=== PATIENT | male | born 1960 | race Caucasian/White ===

== ENCOUNTER 2017-01-19 18:52 | Emergency (ER) | payer OTHER ==
[~2017-01-19] VITALS: Ht 190.5 cm; Wt 82.0 kg
[~2017-01-19 18:52] MED LIST: ASPI325T PO; ATOR20TA42 PO; FOLI1 PO; MVI PO
[2017-01-19 19:05] VITALS: BP 135/82; PULSE 103; RESP 20; TEMP 99; O2SAT 100
[2017-01-19] MEDS ORDERED: SODIUM CHLORIDE 0.9% FLUSH 10 ML FLUSH IV FLUSH PRN (19:45)
--- NOTE | 2017-01-19 19:50 | PD ---
HPI Chief Complaint: Altered Mental Status Time Seen by Provider: 19:38 Travel History International Travel<30 days: No Contact w/Intl Traveler<30days: No Traveled to known affect area: No History of Present Illness HPI 56-year-old male presents to the emergency department by EMS transport from home for evaluation of altered mentation. According the patient he is not sure why he is here. Patient states she was talking to his stepfather on the phone and then she'll thereafter EMS arrived stating that he needed be transported to the hospital. Family arrived there as well and stepfather was presents stating that he needed to go to the hospital. Patient denies any recent injury or fall fever congestion confusion headache speech disturbance chest pain palpitations sweats shortness of breath nausea vomiting new upper or lower extremity numbness tingling or weakness fever or chills diarrhea urinary symptoms or injury. Patient states that he does have residual lower extremity weakness from a stroke he suffered in September. Patient admits to drinking alcohol today but states he drinks alcohol every day. Patient denies seizure disorder. Patient states she's felt well the past several days felt well day was eating dinner had had several drinks and then the paramedics arrived. Patient denies being depressed and wanting to harm himself or others. Patient states she lives in [place] and is visiting here to help out his stepfather. Patient is unsure why the paramedics were called patient reports that he is upset because he doesn't have any financial resources to afford being evaluated in the emergency department. Patient repeatedly tells me that he doesn't know why he is here and that he has had several drinks today. Patient does report that he thinks it is January 2006 is the next holiday and he thinks Derrek Salazar is the president and then repeats that he's had several drinks today and he is not sure why he is here. [facility] Past Medical History Narrative Medical Humza CVA eighth 2015 sepsis alcoholism transaminitis kidney injury metabolic encephalopathy right hip surgery tobacco use: Nursing notes reviewed Cancer: No Cardiovascular Problems: No Cerebrovascular Accident: Yes (SEP 2016 ) Endocrine: No Genitourinary: No Immune Disorder: Yes Medical other: Yes (ALCOHOLISM) Musculoskeletal: No Neurologic: No Psychiatric: No Reproductive: No Respiratory: No Migraines: No Seizures: No Influenza Vaccination: No Past Surgical History Abdominal Surgery: No AICD: No Arteriovenous Shunt: No Cardiac Surgery: No Ear Surgery: No Endocrine Surgery: No Eye Surgery: No Genitourinary Surgery: No Gynecologic Surgery: No Insulin Pump: No Joint Replacement: Yes (RIGHT Hip replacement (stainless steel in 1984)) Oral Surgery: No Pacemaker: No Thoracic Surgery: No Other Surgery: Yes (Hip replacement ) Social History Alcohol Use: Yes (LIQUOR DAILY) Tobacco Use: Yes Substance Use: Yes (MARIJUANA OCCASIONALLY) Allergies-Medications (Allergen,Severity, Reaction): Coded Allergies: No Known Allergies (Verified Adverse Reaction, Unknown, 01/19/17) Reported Meds & Prescriptions Reported Meds & Active Scripts Active No Active Prescriptions or Reported Medications Narrative Medication denies Review of Systems Except as stated in HPI: all other systems reviewed are Neg Physical Exam Narrative GENERAL: Well-developed well-nourished male in no acute distress no respiratory distress GCS 15 except for confusion about the year is oriented to person place time and events. SKIN: Warm and dry. HEAD: Atraumatic. Normocephalic. EYES: Pupils equal and round. No scleral icterus. No injection or drainage. ENT: No nasal bleeding or discharge. Mucous membranes pink and moist. NECK: Trachea midline. No JVD. CARDIOVASCULAR: Regular rate and rhythm. RESPIRATORY: No accessory muscle use. Clear to auscultation. Breath sounds equal bilaterally. GASTROINTESTINAL: Abdomen soft, non-tender, nondistended. Hepatic and splenic margins not palpable. MUSCULOSKELETAL: Extremities without clubbing, cyanosis, or edema. No obvious deformities. NEUROLOGICAL: Awake and alert. No obvious cranial nerve deficits. Motor grossly within normal limits. Five out of 5 muscle strength in the arms and legs except right foot drop old since September 2015. No pronator drift. No limb ataxia. Normal speech. PSYCHIATRIC: Appropriate mood and affect; insight and judgment normal. Data Data Last Documented VS Vital Signs Date Time Temp Pulse Resp B/P (MAP) Pulse Ox O2 Delivery O2 Flow Rate FiO2 01/19/17 21:40 98.6 110 22 98 Room Air 01/19/17 19:05 135/82 (99) Orders Orders Electrocardiogram (01/19/17 19:38) Ammonia (01/19/17 19:38) Complete Blood Count With Diff (01/19/17 19:38) Comprehensive Metabolic Panel (01/19/17 19:38) Prothrombin Time / Inr (Pt) (01/19/17 19:38) Act Partial Throm Time (Ptt) (01/19/17 19:38) Troponin I (01/19/17 19:38) Thyroid Stimulating Hormone (01/19/17 19:38) Urinalysis - C+S If Indicated (01/19/17 19:38) Ct Brain W/O Iv Contrast(Rout) (01/19/17 19:38) Blood Glucose (01/19/17 19:38) Ecg Monitoring (01/19/17 19:38) Iv Access Insert/Monitor (01/19/17 19:38) Oximetry (01/19/17 19:38) Sodium Chloride 0.9% Flush (Ns Flush) (01/19/17 19:45) Drug Screen, Random Urine (01/19/17 19:38) Alcohol (Ethanol) (01/19/17 19:38) Magnesium (Mg) (01/19/17 19:38) Chest, Single Ap (01/19/17 21:26) Sodium Chlor 0.9% 1000 Ml Inj (Ns 1000 M (01/19/17 21:45) Ed Discharge Order (01/19/17 22:47) Labs Laboratory Tests Test 01/19/17 20:18 White Blood Count 7.6 TH/MM3 Red Blood Count 3.19 MIL/MM3 Hemoglobin 12.8 GM/DL Hematocrit 36.9 % Mean Corpuscular Volume 115.7 FL Mean Corpuscular Hemoglobin 40.1 PG Mean Corpuscular Hemoglobin Concent 34.6 % Red Cell Distribution Width 16.2 % Platelet Count 214 TH/MM3 Mean Platelet Volume 8.1 FL Neutrophils (%) (Auto) 67.7 % Lymphocytes (%) (Auto) 20.9 % Monocytes (%) (Auto) 8.7 % Eosinophils (%) (Auto) 1.3 % Basophils (%) (Auto) 1.4 % Neutrophils # (Auto) 5.1 TH/MM3 Lymphocytes # (Auto) 1.6 TH/MM3 Monocytes # (Auto) 0.7 TH/MM3 Eosinophils # (Auto) 0.1 TH/MM3 Basophils # (Auto) 0.1 TH/MM3 CBC Comment DIFF FINAL Differential Comment Prothrombin Time 10.0 SEC Prothromb Time International Ratio 1.0 RATIO Activated Partial Thromboplast Time 25.3 SEC Urine Color LIGHT-YELLOW Urine Turbidity CLEAR Urine pH 6.0 Urine Specific [place] 1.003 Urine Protein NEG mg/dL Urine Glucose (UA) NEG mg/dL Urine Ketones NEG mg/dL Urine Occult Blood NEG Urine Nitrite NEG Urine Bilirubin NEG Urine Urobilinogen LESS THAN 2.0 MG/DL Urine Leukocyte Esterase NEG Urine RBC LESS THAN 1 /hpf Urine WBC LESS THAN 1 /hpf Urine Squamous Epithelial Cells <1 /hpf Microscopic Urinalysis Comment CATH-CULT NOT IND Blood Urea Nitrogen 7 MG/DL Creatinine 0.74 MG/DL Random Glucose 83 MG/DL Total Protein 6.9 GM/DL Albumin 3.1 GM/DL Calcium Level 8.9 MG/DL Magnesium Level 1.5 MG/DL Alkaline Phosphatase 95 U/L Aspartate Amino Transf (AST/SGOT) 34 U/L Alanine Aminotransferase (ALT/SGPT) 46 U/L Total Bilirubin 0.7 MG/DL Sodium Level 136 MEQ/L Potassium Level 3.7 MEQ/L Chloride Level 102 MEQ/L Carbon Dioxide Level 25.4 MEQ/L Anion Gap 9 MEQ/L Estimat Glomerular Filtration Rate 109 ML/MIN Ammonia LESS THAN 10 MCMOL/L Troponin I LESS THAN 0.02 NG/ML Thyroid Stimulating Hormone 3rd Gen 2.070 uIU/ML Urine Opiates Screen NEG Urine Barbiturates Screen NEG Urine Amphetamines Screen NEG Urine Benzodiazepines Screen NEG Urine Cocaine Screen NEG Urine Cannabinoids Screen NEG Ethyl Alcohol Level 56 MG/DL [facility] Medical Decision Making Medical Screen Exam Complete: Yes Emergency Medical Condition: Yes Medical Record Reviewed: Yes Interpretation(s) EKG: Sinus rhythm rate [address] elevation injury pattern or ectopy normal axis and intervals are noted Last Impressions Head CT 01/19/171937 Signed Impressions: Service Date/Time: January 19:47 - CONCLUSION: 1. No acute intracranial abnormalities. Ej Oden MD CBC & BMP Diagram 01/19/17 20:18 Total Protein 6.9, Albumin 3.1 L, Calcium Level 8.9, Magnesium Level 1.5, Alkaline Phosphatase 95, Aspartate Amino Transf (AST/SGOT) 34, Alanine Aminotransferase (ALT/SGPT) 46, Total Bilirubin 0.7 Vital Signs Date Time Temp Pulse Resp B/P (MAP) Pulse Ox O2 Delivery O2 Flow Rate FiO2 01/19/17 19:05 99.0 103 20 135/82 (99) 100 Alcohol: 56 mildly elevated Urine drug screen: Negative TSH: 2.070 Troponin I: Less than 0.02, not elevated Differential Diagnosis Altered mental status, alcohol intoxication, TIA, seizure, electrolyte disturbance, metabolic encephalopathy, sepsis, accidental versus intentional ingestion Narrative Course Patient placed on teletypesetter monitor IV access obtained specimens collected and sent for resulting review of medical records performed; family not available. Patient again voicing no concerns and states again he is not sure why his family members called to have him brought to the emergency room. According to nurse family was concerned that he has not maintaining his hygiene as well as he used to. Patient here states that he has been trying to care for himself does have limited resources but has not noticed any changes himself lab values are grossly normal range CT brain noncontrast reveals no acute process EKG is sinus rhythm without acute injury area patient given IV fluid hydration. Serum alcohol is mildly elevated and urine drug screen is negative Patient is stable for outpatient management at this time and family has agreed to take him home. Diagnosis Primary Impression: Alcohol use Referrals: Primary Care Physician call for appointment [facility] Patient Instructions: General Instructions Additional Instructions: Increase fluid hydration Follow-up with [facility] regarding detox resources Follow-up with primary care provider Avoid alcohol consumption Return to the emergency department for any concerns or change in condition Take 1 low-dose 81 mg aspirin daily Scripts No Active Prescriptions or Reported Meds Disposition: 01 DISCHARGE HOME Condition: Stable Pratibha Rojas MD Jan 19, 2017 19:50
--- NOTE | 2017-01-19 20:08 | RADRPT ---
EXAM DATE/TIME: 01/19/2017 19:47 [facility] COMPARISON: No previous studies available for comparison. INDICATIONS : AMS . RADIATION DOSE: 56.42 CTDIvol (mGy) MEDICAL HISTORY : Hypertension. SURGICAL HISTORY : Hip replacement ENCOUNTER: Initial ACUITY: 1 day PAIN SCALE: 0/10 LOCATION: Bilateral cranial TECHNIQUE: Multiple contiguous axial images were obtained of the head. Using automated exposure control and adj ustment of the mA and/or kV according to patient size, radiation dose was kept as low as reasonably a chievable to obtain optimal diagnostic quality images. DICOM format image data is available electro nically for review and comparison. FINDINGS: CEREBRUM: The ventricles are normal for age. No evidence of midline shift, mass lesion, hemorrhage or acute in farction. No extra-axial fluid collections are seen. POSTERIOR FOSSA: The cerebellum and brainstem are intact. The 4th ventricle is midline. The cerebellopontine angle i s unremarkable. EXTRACRANIAL: The visualized portion of the orbits is intact. SKULL: The calvaria is intact. No evidence of skull fracture. CONCLUSION: 1. No acute intracranial abnormalities. Ej Oden MD on January 19, 2017 at 20:05 Board Certified Radiologist. This report was verified electronically.
[2017-01-19 20:44] LABS: AUTOMATED NEUTROPHIL # 5.1 TH/MM3 (1.8-7.7); BASOPHIL # 0.1 TH/MM3 (0-0.2); BASOPHIL % 1.4 % (0.0-2.0); BILIRUBIN, URINE NEG (NEG); BLOOD, URINE NEG (NEG); EOSINOPHIL # 0.1 TH/MM3 (0-0.4); EOSINOPHIL % 1.3 % (0.0-4.0); GLUCOSE,URINE NEG (NEG); HEMATOCRIT 36.9 % (39.0-51.0); HEMOGLOBIN 12.8 GM/DL (13.0-17.0); KETONE, URINE NEG (NEG); LYMPH % 20.9 % (9.0-44.0); LYMPHOCYTE # 1.6 TH/MM3 (1.0-4.8); MEAN CELL VOLUME 115.7 FL (80.0-100.0); MEAN CORPUSCULAR HEMOGLOBIN 40.1 PG (27.0-34.0); MEAN CORPUSCULAR HGB CONC 34.6 % (32.0-36.0); MEAN PLATELET VOLUME 8.1 FL (7.0-11.0); MONO % 8.7 % (0.0-8.0); MONOCYTE # 0.7 TH/MM3 (0-0.9); NEUT % 67.7 % (16.0-70.0); NITRITE,URINE NEG (NEG); PLATELET COUNT 214 TH/MM3 (150-450); RED BLOOD COUNT 3.19 MIL/MM3 (4.50-5.90); RED CELL DISTRIBUTION WIDTH 16.2 % (11.6-17.2); SQUAMOUS EPITHELIAL CELL URINE <1 /hpf (0-5); URINE COLOR LIGHT-YELLOW (YELLW/STRAW); URINE LEUKOCYTE ESTERASE NEG (NEG); WHITE BLOOD COUNT 7.6 TH/MM3 (4.0-11.0)
[2017-01-19 20:55] LABS: ALBUMIN 3.1 GM/DL (3.4-5.0); AST (GOT) 34 U/L (15-37); BICARBONATE 25.4 MEQ/L (21.0-32.0); BLOOD UREA NITROGEN 7 MG/DL (7-18); CALCIUM 8.9 MG/DL (8.5-10.1); CHLORIDE 102 MEQ/L (98-107); CREATININE 0.74 MG/DL (0.60-1.30); GLOMERULAR FILTRATION RATE 109 ML/MIN (>89); GLUCOSE,RANDOM 83 MG/DL (74-106); MAGNESIUM 1.5 MG/DL (1.5-2.5); SODIUM (NA) 136 MEQ/L (136-145)
[2017-01-19 20:56] LABS: ALT (GPT) 46 U/L (12-78)
[2017-01-19 21:05] LABS: ALKALINE PHOSPHATASE 95 U/L (45-117); TOTAL BILIRUBIN ADULT 0.7 MG/DL (0.2-1.0); TOTAL PROTEIN 6.9 GM/DL (6.4-8.2); TROPONIN I LESS THAN 0.02 NG/ML (0.02-0.05)
[2017-01-19 21:40] VITALS: PULSE 110; RESP 22; TEMP 98.6; O2SAT 98
[2017-01-19] MEDS ORDERED: SODIUM CHLOR 0.9% 1000 ML INJ 1,000 ML IV ONE (21:45)
--- NOTE | 2017-01-19 21:47 | RADRPT ---
EXAM DATE/TIME: 01/19/2017 21:39 [facility] COMPARISON: CHEST SINGLE AP, September 22, 2015, 13:17. INDICATIONS : Shortness of breath. MEDICAL HISTORY : Alcohol abuse. Hypokalemia. SURGICAL HISTORY : None. ENCOUNTER: Initial ACUITY: 1 day PAIN SCORE: 0/10 LOCATION: Bilateral chest FINDINGS: A single view of the chest demonstrates the lungs to be symmetrically aerated without evidence of mas s, infiltrate or effusion. The cardiomediastinal contours are unremarkable. Osseous structures are intact. CONCLUSION: 1. No active disease. Ej Oden MD on January 19, 2017 at 21:45 Board Certified Radiologist. This report was verified electronically.
[2017-01-20 00:19] VITALS: BP 119/77; PULSE 98; RESP 16; O2SAT 98
--- NOTE | 2017-01-21 12:06 | EKG ---
Date Performed: 01/19/2017 Time Performed: 20:16:23 PTAGE: 56 years EKG: Sinus rhythm NORMAL ECG PREVIOUS TRACING : 09/22/2015 12.57 DOCTOR: Adelfo Soriano Interpretating Date/Time 01/21/2017 12:05:14
== END 2017-01-20 01:05 | disposition home or self-care (01) ==
LOC: NEPC 18:52
DX: F10.20 Alcohol dependence, uncomplicated (principal); Y90.2 Blood alcohol level of 40-59 mg/100 ml; Z72.0 Tobacco use
CPT/HCPCS: 70450; 71010; 80053; 80307; 81001; 82140; 83735; 84443; 84484; 85025; 85610; 85730; 93005; 99285; J7030

== ENCOUNTER 2017-02-25 11:25 | Inpatient (IN) | payer SELFPAY ==
[~2017-02-25] VITALS: Ht 190.5 cm; Wt 84.7 kg
[2017-02-25 11:49] VITALS: BP 140/73; PULSE 94; RESP 18; TEMP 97.9; O2SAT 99
--- NOTE | 2017-02-25 11:51 | PD ---
HPI Chief Complaint: Psychiatric Symptoms Time Seen by Provider: 11:34 Travel History International Travel<30 days: No Contact w/Intl Traveler<30days: No Traveled to known affect area: No History of Present Illness HPI 56-year-old male brought in by police with question of ability to care for himself. Patient was taken to [facility], but they felt he was medically beyond their capabilities. There is some question of the patient being impaired in his memory. At that the residence he was living and had black mold on the floor and ceiling, as well as standing water in the floor, as well as a large amount of dog fecal matter in the floor. Denies any medical problems. He denies taking any medications. Patient reports he came down from [place] to sign some papers and is supposed to be moving back to [place] at some point. Has no reported local family members. He has no known drug allergies. PFSH Past Medical History Cancer: No Cardiovascular Problems: No Cerebrovascular Accident: Yes Endocrine: No Genitourinary: No Immune Disorder: Yes Musculoskeletal: No Neurologic: No Psychiatric: No Reproductive: No Respiratory: No Migraines: No Seizures: No Influenza Vaccination: No Past Surgical History Abdominal Surgery: No AICD: No Arteriovenous Shunt: No Cardiac Surgery: No Ear Surgery: No Endocrine Surgery: No Eye Surgery: No Genitourinary Surgery: No Gynecologic Surgery: No Insulin Pump: No Joint Replacement: Yes (RIGHT Hip replacement (stainless steel in 1984)) Oral Surgery: No Pacemaker: No Thoracic Surgery: No Other Surgery: Yes (Hip replacement ) Social History Alcohol Use: Yes (WEEKEND USE) Tobacco Use: Yes Substance Use: Yes (MARIJUANA OCCASIONALLY) Allergies-Medications (Allergen,Severity, Reaction): Coded Allergies: No Known Allergies (Verified Adverse Reaction, Unknown, 02/25/17) Reported Meds & Prescriptions Reported Meds & Active Scripts Active No Active Prescriptions or Reported Medications Review of Systems Except as stated in HPI: all other systems reviewed are Neg General / Constitutional: No: Fever Eyes: No: Visual changes HENT: No: Headaches Cardiovascular: No: Chest Pain or Discomfort Respiratory: No: Shortness of Breath Gastrointestinal: No: Abdominal Pain Genitourinary: No: Dysuria Musculoskeletal: No: Pain Skin: No Rash Neurologic: No: Weakness Psychiatric: No: Depression Endocrine: No: Polydipsia Hematologic/Lymphatic: No: Easy Bruising Physical Exam Narrative GENERAL: Patient appears somewhat disheveled and unkempt. Patient states he is hungry. He is aware of day of the week, president, but unsure of the year. SKIN: Warm and dry. Normal color. Somewhat decreased turgor. HEAD: Atraumatic. Normocephalic. EYES: Pupils equal and round. No scleral icterus. No injection or drainage. ENT: No nasal bleeding or discharge. Mucous membranes pink and moist. Pharynx is clear. Airway is patent. NECK: Trachea midline. No JVD. Supple and nontender. CARDIOVASCULAR: Regular rate and rhythm. RESPIRATORY: No accessory muscle use. Clear to auscultation. Breath sounds equal bilaterally. GASTROINTESTINAL: Abdomen soft, non-tender, nondistended. Hepatic and splenic margins not palpable. MUSCULOSKELETAL: Extremities without clubbing, cyanosis, or edema. No obvious deformities. NEUROLOGICAL: Awake and alert. No obvious cranial nerve deficits. Motor grossly within normal limits. Five out of 5 muscle strength in the arms and legs. Normal speech. PSYCHIATRIC: Appropriate mood and affect; insight and judgment normal. Patient is unsure why he is here. His alert and conscious of place and time. Unsure of the exact year however. Data Data Last Documented VS Vital Signs Date Time Temp Pulse Resp B/P (MAP) Pulse Ox O2 Delivery O2 Flow Rate FiO2 02/25/17 11:49 97.9 94 18 140/73 (95) 99 Room Air Orders Orders Complete Blood Count With Diff (02/25/17 11:43) Comprehensive Metabolic Panel (02/25/17 11:43) Urinalysis - C+S If Indicated (02/25/17 11:43) Psych Screen (02/25/17 11:43) Drug Screen, Random Urine (02/25/17 11:43) Alcohol (Ethanol) (02/25/17 11:43) Diet Regular Basic (02/25/17 Lunch) Labs Laboratory Tests Test 02/25/17 11:55 02/25/17 11:58 White Blood Count 8.2 TH/MM3 Red Blood Count 3.35 MIL/MM3 Hemoglobin 13.3 GM/DL Hematocrit 37.1 % Mean Corpuscular Volume 110.8 FL Mean Corpuscular Hemoglobin 39.7 PG Mean Corpuscular Hemoglobin Concent 35.8 % Red Cell Distribution Width 18.4 % Platelet Count 308 TH/MM3 Mean Platelet Volume 8.3 FL Neutrophils (%) (Auto) 67.5 % Lymphocytes (%) (Auto) 16.7 % Monocytes (%) (Auto) 14.6 % Eosinophils (%) (Auto) 0.3 % Basophils (%) (Auto) 0.9 % Neutrophils # (Auto) 5.5 TH/MM3 Lymphocytes # (Auto) 1.4 TH/MM3 Monocytes # (Auto) 1.2 TH/MM3 Eosinophils # (Auto) 0.0 TH/MM3 Basophils # (Auto) 0.1 TH/MM3 CBC Comment DIFF FINAL Differential Comment Blood Urea Nitrogen 17 MG/DL Creatinine 0.95 MG/DL Random Glucose 144 MG/DL Total Protein 7.3 GM/DL Albumin 3.7 GM/DL Calcium Level 9.9 MG/DL Alkaline Phosphatase 159 U/L Aspartate Amino Transf (AST/SGOT) 54 U/L Alanine Aminotransferase (ALT/SGPT) 83 U/L Total Bilirubin 0.7 MG/DL Sodium Level 131 MEQ/L Potassium Level 3.5 MEQ/L Chloride Level 92 MEQ/L Carbon Dioxide Level 27.5 MEQ/L Anion Gap 12 MEQ/L Estimat Glomerular Filtration Rate 82 ML/MIN Ethyl Alcohol Level LESS THAN 3 MG/DL Urine Color DARK-BROWN Urine Turbidity CLEAR Urine pH 5.5 Urine Specific [place] 1.027 Urine Protein 30 mg/dL Urine Glucose (UA) NEG mg/dL Urine Ketones TRACE mg/dL Urine Occult Blood NEG Urine Nitrite NEG Urine Bilirubin NEG Urine Urobilinogen 8.0 MG/DL Urine Leukocyte Esterase NEG Urine RBC 1 /hpf Urine WBC 2 /hpf Urine Squamous Epithelial Cells <1 /hpf Urine Hyaline Casts 1 /lpf Urine Mucus MOD /lpf Microscopic Urinalysis Comment CULT NOT INDICATED Urine Opiates Screen NEG Urine Barbiturates Screen NEG Urine Amphetamines Screen NEG Urine Benzodiazepines Screen NEG Urine Cocaine Screen NEG Urine Cannabinoids Screen NEG MDM Medical Decision Making Medical Screen Exam Complete: Yes Emergency Medical Condition: Yes Differential Diagnosis Altered mental status. Electrolyte imbalance. Possible psychiatric issue. Narrative Course Patient appears medically stable at time of exam. He states he is hungry. Labs are ordered including CBC, CMP, urinalysis, urine drug screen, and alcohol level. Labs all come back showing no acute process. Patient is medically cleared for psychiatric evaluation. Scripts No Active Prescriptions or Reported Meds Condition: Stable Narinder Mejias Feb 25, 2017 11:51
[2017-02-25 12:09] LABS: AUTOMATED NEUTROPHIL # 5.5 TH/MM3 (1.8-7.7); BASOPHIL # 0.1 TH/MM3 (0-0.2); BASOPHIL % 0.9 % (0.0-2.0); EOSINOPHIL % 0.3 % (0.0-4.0); HEMATOCRIT 37.1 % (39.0-51.0); HEMOGLOBIN 13.3 GM/DL (13.0-17.0); LYMPH % 16.7 % (9.0-44.0); LYMPHOCYTE # 1.4 TH/MM3 (1.0-4.8); MEAN CELL VOLUME 110.8 FL (80.0-100.0); MEAN CORPUSCULAR HEMOGLOBIN 39.7 PG (27.0-34.0); MEAN CORPUSCULAR HGB CONC 35.8 % (32.0-36.0); MEAN PLATELET VOLUME 8.3 FL (7.0-11.0); MONO % 14.6 % (0.0-8.0); MONOCYTE # 1.2 TH/MM3 (0-0.9); NEUT % 67.5 % (16.0-70.0); PLATELET COUNT 308 TH/MM3 (150-450); RED BLOOD COUNT 3.35 MIL/MM3 (4.50-5.90); RED CELL DISTRIBUTION WIDTH 18.4 % (11.6-17.2); WHITE BLOOD COUNT 8.2 TH/MM3 (4.0-11.0)
[2017-02-25 12:22] LABS: BILIRUBIN, URINE NEG (NEG); BLOOD, URINE NEG (NEG); GLUCOSE,URINE NEG (NEG); HYALINE CAST, URINE 1 /lpf (RARE); KETONE, URINE TRACE mg/dL (NEG); MUCUS URINE MOD /lpf (OCC); NITRITE,URINE NEG (NEG); PH, URINE 5.5 (5.0-8.5); SQUAMOUS EPITHELIAL CELL URINE <1 /hpf (0-5); URINE COLOR DARK-BROWN (YELLW/STRAW); URINE LEUKOCYTE ESTERASE NEG (NEG)
[2017-02-25 12:28] LABS: ALBUMIN 3.7 GM/DL (3.4-5.0); AST (GOT) 54 U/L (15-37); BICARBONATE 27.5 MEQ/L (21.0-32.0); BLOOD UREA NITROGEN 17 MG/DL (7-18); CALCIUM 9.9 MG/DL (8.5-10.1); CHLORIDE 92 MEQ/L (98-107); CREATININE 0.95 MG/DL (0.60-1.30); GLOMERULAR FILTRATION RATE 82 ML/MIN (>89); GLUCOSE,RANDOM 144 MG/DL (74-106); SODIUM (NA) 131 MEQ/L (136-145)
[2017-02-25 12:31] LABS: ALKALINE PHOSPHATASE 159 U/L (45-117); ALT (GPT) 83 U/L (12-78); TOTAL BILIRUBIN ADULT 0.7 MG/DL (0.2-1.0); TOTAL PROTEIN 7.3 GM/DL (6.4-8.2)
[2017-02-25 14:56] VITALS: BP 105/65; PULSE 84; RESP 16; TEMP 98.7; O2SAT 100
[2017-02-25 22:23] VITALS: BP 114/66; PULSE 108; RESP 18; TEMP 98.6; O2SAT 99
[2017-02-26] MEDS ORDERED: ZIPRASIDONE MESYLATE 20 MG VIAL IM ONE (01:45)
[2017-02-26 06:47] VITALS: BP 122/78; PULSE 118; RESP 19; TEMP 99.8; O2SAT 98
[2017-02-26 07:06] VITALS: PULSE 89; RESP 18; TEMP 95.8; TEMP 98.3; O2SAT 100
[2017-02-26] MEDS ORDERED: ALUMINUM/MAGNESIUM/SIMETH 30 ML CUP PO PRN (11:15)
[2017-02-26] MEDS ORDERED: MAGNESIUM HYDROXIDE SUSP 30 ML CUP PO PRN (11:15)
[2017-02-26] MEDS ORDERED: LORazepam 2 MG/ML VIAL IM PRN ×2 (11:15)
[2017-02-26] MEDS ORDERED: LORazepam 1 MG TAB PO PRN (11:15)
[2017-02-26] MEDS ORDERED: LORazepam 2 MG TAB PO PRN (11:15)
[2017-02-26] MEDS ORDERED: ACETAMINOPHEN 325 MG TAB PO PRN (11:15)
[2017-02-26] MEDS ORDERED: FLUMAZENIL 0.5 MG/5 ML VIAL IV PUSH PRN (11:15)
[2017-02-26] MEDS ORDERED: LORazepam 2 MG/ML VIAL IV PUSH PRN ×4 (11:15)
--- NOTE | 2017-02-26 11:26 | RADRPT ---
EXAM DATE/TIME: 02/26/2017 10:57 [facility] COMPARISON: MRI BRAIN W & W/O CONTRAST, September 29, 2015, 20:16. CT BRAIN W/O CONTRAST, January 19, 2017, 19:47 . INDICATIONS : Altered mental status, episodes of aphasia. RADIATION DOSE: 56.35 CTDIvol (mGy) MEDICAL HISTORY : Cerebrovascular disease. Immunological disorder unknown type. Psych. SURGICAL HISTORY : None. ENCOUNTER: Initial ACUITY: 1 day PAIN SCALE: 0/10 LOCATION: cranial TECHNIQUE: Multiple contiguous axial images were obtained of the head. Using automated exposure control and adj ustment of the mA and/or kV according to patient size, radiation dose was kept as low as reasonably a chievable to obtain optimal diagnostic quality images. DICOM format image data is available electro nically for review and comparison. FINDINGS: There is no evidence for intracranial hemorrhage, mass effect, mass lesions, or edema. The visualize d bony structures appear intact. Slight degree of brain atrophy is seen. There are no signs of acute infarction for technique. CONCLUSION: Slight atrophic changes without any acute process. Yahaira Coello MD on February 26, 2017 at 11:22 Board Certified Radiologist. This report was verified electronically.
[2017-02-26 11:47] VITALS: BP 100/57; PULSE 102; RESP 18; TEMP 97.8; O2SAT 100
[2017-02-26 13:52] VITALS: BP 116/82; PULSE 97; RESP 18; TEMP 98; O2SAT 100
[2017-02-26 18:47] VITALS: BP 125/75; PULSE 93; RESP 18; TEMP 93; O2SAT 100
[2017-02-26] MEDS: REMOVE OLD NICODERM (NICOTINE) PATCH T-DERMAL SCH (20:58)
[2017-02-26] MEDS: LORazepam 0.5 MG TAB PO PRN (22:33)
[2017-02-27 05:49] VITALS: BP 98/61; PULSE 108; RESP 16; TEMP 97.6; O2SAT 100
[2017-02-27] MEDS: NICOTINE 21 MG/24 HR PATCH T-DERMAL SCH (08:43)
--- NOTE | 2017-02-27 12:22 | HHI.HP ---
Provisional Diagnosis Admission Date Feb 26, 2017 at 11:11 [place] I. Alzheimer's disease early-onset g 30.0 dementia another disease categories f 02.81 Certification of Person's Competence To Provide Express and Informed Consent I have personally examined Jose Pina , a person being served at [facility] on, Feb 27, 2017 11:50. Express and informed consent means consent voluntarily given in writing, by a competent person, after sufficient explanation and disclosure of the subject matter involved to enable the person to make a knowing and willful decision without any element of force, fraud, deceit, duress, or other form of constraint or coercion. This person is 18 years of age or older, is not now known to be incompetent to consent to treatment with a guardian advocate, and does not have a health care surrogate or proxy currently making medical treatment decisions. I have found this person to be one of the following: [] Competent to provide express and informed consent, as defined above, for voluntary admission to this facility and is competent to provide express and informed consent for treatment. He/she has the consistent capacity to make well reasoned, willful, and knowing decisions concerning his or her medical or mental health treatment. The person fully and consistently understands the purpose of the admission for examination/placement and is fully capable of personally exercising all rights assured under [place]xxx] Incompetent to provide express and informed consent to voluntary admission , and this is incompetent to provide express and informed consent to treatment. The person must be transferred to involuntary status and a petition for a guardian advocate filed with the Circuit Court. [] Refusing to provide express and informed consent to voluntary admission but is competent to provide express and informed consent for treatment. The person must be discharged or transferred to involuntary status. Form shall be completed within 24 hours of a person's arrival at the receiving facility and filed in the clinical record of each person: 1. Admitted on a voluntary basis 2. Permitted to provide express and informed consent to his/her own treatment 3. Allowed to transfer from involuntary to voluntary status 4. Prior to permitting a person to consent to his or her own treatment after having been previously found incompetent to consent to treatment. History of Present Illness Capacity: Lacks Capacity Psych Chief Complaint: confused living and squalor HPI Condition is a 56-year-old white male comes here under Ramirez act by the [facility]'s office dated 02/24/17 at 1612 hrs. that Jose reviewed and agreed with it essentially is stating that he Jose observed several environmental hazards in Escobar's residents. Including black mold growing on the floors and chapa, a large puddle of standing water on the floor of the kitchen and living room, dog feces on the floor, garbage on the floors and contours in approximately 15 bottles of urine on the floor in the living room Kelly Garcia attempted to speak with Escobar in depth in reference to his living situation but found did immediately became apparent Escobar did not fully comprehend the reality of his situations. Escobar stated he thought the year was 2005. Escobar stated he was not having thoughts about harming himself or others but he was not sure if was able care for himself any longer. Based on several of Escobar's confused statements became apparent Escobar was unable to determine if mental health evaluation was necessary appropriate also was unable to advise if he has any willing family members to assist him. Patient seen screened in the ED urine toxicology negative blood alcohol level: Negative. Patient seen in his room with nurse Alena patient initially irritable questioning why he is admitted to the psychiatric unit. He is diffusely disoriented though is able to denies she is in a hospital he is in [place] he thought the year was 1995 he could not identify the month the date or the day. He states he came down here from [place] about a month ago to do "paperwork" did visit with his mother and father. Minimizes the [facility] he was living in stated that he had a stroke a few months ago the left week that his patient services assistant broke giving various excuses for of the large amounts of urine started problems in his home. However the counselor has talked to forensic social worker is involved with the family. It appears patient's mother a number of years ago. That he has been down here for significant period of time his misuse alcohol greater than what he expressed to me. There is been living in the [facility] for an extended period of time. She denies any prior psychiatric contact hospitalization psychotropic medications except when he was discharged with a DUI a number of years ago he denies any physical sexual abuse. Denies any mental illness in the family. He states he is single has no children. At this time I feel patient does meet criteria for involuntary psychiatric hospitalization the Ramirez act I will do first opinion request opinion. I also feel that he doesn't have capacity to make appropriate decisions concerning his care thus I'll ask for healthcare surrogate and guardian advocate. He is on no specific medications at this time. We will the hospitalist consult with us, will have neurology consult with us. We will have PT consult with us. Review of Systems Constitutional: DENIES: Diaphoretic episodes, Fatigue, Fever, Weight gain, Weight loss, Chills, Dizziness, Change in appetite, Night Sweats Endocrine: DENIES: Heat/cold intolerance, Polydipsia, Polyuria, Polyphagia Eyes: DENIES: Blurred vision, Diplopia, Eye inflammation, Eye pain, Vision loss , Photosensitivity, Double Vision Ears, nose, mouth, throat: DENIES: Tinnitus, Hearing loss, Vertigo, Nasal discharge, Oral lesions, Throat pain, Hoarseness, Ear Pain, Running Nose, Epistaxis, Sinus Pain, Toothache, Odynophagia Respiratory: DENIES: Apneas, Cough, Snoring, Wheezing, Hemoptysis, Sputum production, Shortness of breath Cardiovascular: DENIES: Chest pain, Palpitations, Syncope, Dyspnea on Exertion , PND, Lower Extremity Edema, Orthopnea, Claudication Gastrointestinal: DENIES: Abdominal pain, Black stools, Bloody stools, Constipation, Diarrhea, Nausea, Vomiting, Difficulty Swallowing, Anorexia Genitourinary: DENIES: Sexual dysfunction, Urinary frequency, Urinary incontinence, Urgency, Hematuria, Dysuria, Nocturia, Penile Discharge, Testicular Pain, Testicular Swelling Musculoskeletal: DENIES: Joint pain, Muscle aches, Stiffness, Joint Swelling, Back pain, Neck pain Integumentary: DENIES: Abnormal pigmentation, Nail changes, Pruritus, Rash Hematologic/lymphatic: DENIES: Bruising, Lymphadenopathy Immunologic/allergic: DENIES: Eczema, Urticaria Neurologic: COMPLAINS OF: Abnormal gait (patient uses walker for stability) Psychiatric: COMPLAINS OF: Anxiety (and irritability) Past Psych History Psychological trauma history Denies Violence risk - others (6 mos) Low Violence risk - self (6 mos) Low though high risk for self-neglect Substance Abuse History Drugs/Alcohol past 12 months Patient frequent alcohol and marijuana user Past Family Social History Coded Allergies: No Known Allergies (Verified Adverse Reaction, Unknown, 02/25/17) No Active Prescriptions or Reported Meds Current Medications Medications (Trade) Dose Ordered Sig/Mikey Route Start Time Stop Time Status Last Admin (Ativan Inj) 1 mg Q6H PRN IM 02/26/17 11:15 (Ativan) 0.5 mg Q12H PRN PO 02/26/17 11:15 02/26/17 22:33 (Tylenol) 650 mg Q4H PRN PO 02/26/17 11:15 (Milk Of Magnesia Liq) 30 ml DAILY PRN PO 02/26/17 11:15 (Mag-Al Plus Susp Liq) 30 ml Q6H PRN PO 02/26/17 11:15 (Habitrol 21 Mg Patch.24 Hr) 1 patch DAILY T-DERMAL 02/27/17 09:00 02/27/17 08:43 (Romazicon Inj) 0.2 mg Q1M PRN IV PUSH 02/26/17 11:15 (Ativan) 1 mg Q4H PRN PO 02/26/17 11:15 (Ativan Inj) 1 mg Q4H PRN IV PUSH 02/26/17 11:15 (Ativan) 2 mg Q2H PRN PO 02/26/17 11:15 (Ativan Inj) 2 mg Q2H PRN IV PUSH 02/26/17 11:15 (Ativan Inj) 2 mg Q1H PRN IV PUSH 02/26/17 11:15 (Ativan Inj) 2 mg Q15M PRN IV PUSH 02/26/17 11:15 Miscellaneous Information 1 HS T-DERMAL 02/26/17 21:00 Family Psych History Denies mental illness and family origin Social History Patient states single no children now lives in [facility] Patient's Strengths (min. 2) Patient verbal labile axis health care Physical Exam Patient medically cleared ED at the present time patient sitting quietly in his room he is in no acute distress, he is in no respiratory distress. No complaints abdominal pain. Patient was offer extremities no difficulty. Vital Signs Vital Signs Date Time Temp Pulse Resp B/P (MAP) Pulse Ox O2 Delivery O2 Flow Rate FiO2 02/27/17 05:49 97.6 108 16 98/61 (73) 100 02/26/17 11:47 Room Air I/O 1/22/18 1/22/18 1/23/18 08:00 16:00 00:00 Intake Total 0 ml 480 ml Balance 0 ml 480 ml Mental Status Examination Appearance: Disheveled Consciousness: Alert Orientation: Person, Place (noticed a hospital in [facility]), Date/ Time (thinks it'1995 do not know the time did not know the day of an 8), Situation (notices a hospital) Motor Activity: Abnormal gait (use his walker) Speech: Unremarkable Language: Adequate Fund of Knowledge: Adequate Attention and Concentration: Easily Distracted Memory: Unremarkable Mood: Irritable Affect: Other (slight increase range and intensity) Thought Process & Associations: Disorganized Thought Content: Other (disorganized) Hallucination Type: None (denies) Delusion Type: None Suicidal Ideation: No Suicidal Plan: No Suicidal Intention: No Homicidal Ideation: No Homicidal Plan: No Homicidal Intention: No Insight: Poor Judgment: Poor Assessment & Plan Problem List: (1) ALZHEIMER'S DISEASE WITH EARLY ONSET ICD Codes: G30.0 - ALZHEIMER'S DISEASE WITH EARLY ONSET (2) DEMENTIA IN OTH DISEASES CLASSD ELSWHR W BEHAVIORAL DISTURB ICD Codes: F02.81 - DEMENTIA IN OTH DISEASES CLASSD ELSWHR W BEHAVIORAL DISTURB Assessment & Plan 7-10 Estimated LOS: days patient continues confused with no insight. At this time patient meets criteria for involuntary psychiatric hospitalization thus I' ll do first opinion request second opinion I feel he does not have capacity FOR healthcare surrogate and guardian advocate. Above consultations with the hospitalists neurology and PT will attempt to gain further information from her caregiver was involved patient's mother when she was alive and stepfather Discharge Planning Need to gather further information and data before making recommendations for placement Request HC Surrog/Guard Advoc?: Yes Travis Brannon MD Feb 27, 2017 12:22
[2017-02-27] MEDS ORDERED: MAGNESIUM HYDROXIDE SUSP 30 ML CUP PO PRN (13:00)
[2017-02-27] MEDS ORDERED: ALUMINUM/MAGNESIUM/SIMETH 30 ML CUP PO PRN (13:00)
[2017-02-27 14:44] LABS: BICARBONATE 34.5 MEQ/L (21.0-32.0); BLOOD UREA NITROGEN 12 MG/DL (7-18); CALCIUM 8.9 MG/DL (8.5-10.1); CHLORIDE 98 MEQ/L (98-107); CHOLESTEROL 138 MG/DL (120-200); CREATININE 0.69 MG/DL (0.60-1.30); GLOMERULAR FILTRATION RATE 118 ML/MIN (>89); GLUCOSE,RANDOM 77 MG/DL (74-106); SODIUM (NA) 137 MEQ/L (136-145); TRIGLYCERIDES 101 MG/DL (42-150)
[2017-02-27 14:48] LABS: LDL CHOLESTEROL 49 MG/DL (0-99)
--- NOTE | 2017-02-27 15:38 | PD.CONS ---
HPI Service [facility] Hospitalists Consult Requested By psych Reason for Consult med [facility] Primary Care Physician No Primary Care Physician Diagnoses: History of Present Illness 56 y/o male admitted to psych [facility] , hospitalist consulted for med management, it turned out to be for R foot 3 ulcer each about 1-2 cm , dry , pt deny pain in it , denied being diabetic , in general poor historian , denied other complain Review of Systems Except as stated in HPI: all other systems reviewed are Neg Past Family Social History Allergies: Coded Allergies: No Known Allergies (Verified Adverse Reaction, Unknown, 02/25/17) Past Medical History hx of alzheimers , dementia , ? pontine cva alcholism Past Surgical History r hip replacement Family History denied cad or cancer or other relevant dz Social History positive for alchol and smoke 1ppd Physical Exam Vital Signs Vital Signs Date Time Temp Pulse Resp B/P (MAP) Pulse Ox O2 Delivery O2 Flow Rate FiO2 02/27/17 05:49 97.6 108 16 98/61 (73) 100 02/26/17 18:47 93.0 93 18 125/75 (92) 100 Physical Exam GENERAL: This is a well-nourished, well-developed patient, in no apparent distress. SKIN: No rashes, ecchymoses or lesions. Cool and dry. HEAD: Atraumatic. Normocephalic. No temporal or scalp tenderness. EYES: Pupils equal round and reactive. Extraocular motions intact. No scleral icterus. No injection or drainage. ENT: Nose without bleeding, purulent drainage or septal hematoma. Throat without erythema, tonsillar hypertrophy or exudate. Uvula midline. Airway patent. NECK: Trachea midline. No JVD or lymphadenopathy. Supple, nontender, no meningeal signs. CARDIOVASCULAR: Regular rate and rhythm without murmurs, gallops, or rubs. RESPIRATORY: Clear to auscultation. Breath sounds equal bilaterally. No wheezes , rales, or rhonchi. GASTROINTESTINAL: Abdomen soft, non-tender, nondistended. No hepato-splenomegaly , or palpable masses. No guarding.left foot 3 ulcers 1 cm each dry non tender MUSCULOSKELETAL: Extremities without clubbing, cyanosis, or edema. No joint tenderness, effusion, or edema noted. No calf tenderness. Negative Homans sign bilaterally. NEUROLOGICAL: Awake and alert.moves all exts Normal speech. Laboratory Laboratory Tests Test 02/27/17 13:38 Blood Urea Nitrogen 12 Creatinine 0.69 Random Glucose 77 Calcium Level 8.9 Sodium Level 137 Potassium Level 3.7 Chloride Level 98 Carbon Dioxide Level 34.5 Anion Gap 5 Estimat Glomerular Filtration Rate 118 Triglycerides Level 101 Cholesterol Level 138 LDL Cholesterol 49 HDL Cholesterol 69.0 Cholesterol/HDL Ratio 2.00 Result Diagram: 02/25/17 1155 02/27/17 1338 Imaging Last Impressions Head CT 02/26/17 1047 Signed Impressions: Service Date/Time: Sunday, February 26, 2017 10:57 - CONCLUSION: Slight atrophic changes without any acute process. Yahaira Coello MD Assessment and Plan Assessment and Plan 56 y/o male admitted to psych , we are consulted for R foot ulcers , looks dry , we will consult podiatry t, cont wound care and dressing , no sign of systemic infx inc transaminase and alk phos mostly alcholic liver cirrhosis/fatty liver >> check liver u/s and hepatitis pannel alchol abuse >>councelled CIWA protocol hx of dementia and Alzheimer which pt denied ?hx of ontine cva >> neurology consulted Discussed Condition With nurse Tere Alicea MD Feb 27, 2017 15:38
[2017-02-27 16:28] LABS: HEMOGLOBIN A1C 5.4 % (4.3-6.0)
[2017-02-27 17:22] VITALS: BP 103/64; PULSE 102; RESP 16; TEMP 97.4; O2SAT 98
[2017-02-27] MEDS ORDERED: GENTAMICIN SULFATE 0.1% OINT 15 GM TUBE TOPICAL ONE (18:45)
[2017-02-27] MEDS ORDERED: CHLORHEXIDINE GLUCONATE 4% SOLN 120 ML BTL TOPICAL ONE (18:45)
--- NOTE | 2017-02-27 18:46 | PD.CONS ---
History of Present Illness Consult Requested By Primary Care Physician No Primary Care Physician Diagnoses: Past Family Social History Allergies: Coded Allergies: No Known Allergies (Verified Adverse Reaction, Unknown, 02/25/17) Past Medical History CVA Immune disorder Past Surgical History Hip replacement Active Ordered Medications Current Medications Medications (Trade) Dose Ordered Sig/Mikey Route Start Time Stop Time Status Last Admin (Ativan Inj) 1 mg Q6H PRN IM 02/26/17 11:15 (Ativan) 0.5 mg Q12H PRN PO 02/26/17 11:15 02/26/17 22:33 (Habitrol 21 Mg Patch.24 Hr) 1 patch DAILY T-DERMAL 02/27/17 09:00 02/27/17 08:43 (Romazicon Inj) 0.2 mg Q1M PRN IV PUSH 02/26/17 11:15 (Ativan) 1 mg Q4H PRN PO 02/26/17 11:15 (Ativan Inj) 1 mg Q4H PRN IV PUSH 02/26/17 11:15 (Ativan) 2 mg Q2H PRN PO 02/26/17 11:15 (Ativan Inj) 2 mg Q2H PRN IV PUSH 02/26/17 11:15 (Ativan Inj) 2 mg Q1H PRN IV PUSH 02/26/17 11:15 (Ativan Inj) 2 mg Q15M PRN IV PUSH 02/26/17 11:15 Miscellaneous Information 1 HS T-DERMAL 02/26/17 21:00 (Benadryl) 50 mg HS PRN PO 02/27/17 13:00 (Tylenol) 650 mg Q4H PRN PO 02/27/17 13:00 (Milk Of Magnesia Liq) 30 ml DAILY PRN PO 02/27/17 13:00 (Mag-Al Plus Susp Liq) 30 ml Q6H PRN PO 02/27/17 13:00 (Atarax) 50 mg Q6H PRN PO 02/27/17 13:00 (Santyl Oint) 1 applic DAILY TOPICAL 02/28/17 09:00 Social History Admits alcohol, marijuana, and smoking history Physical Exam Vital Signs Vital Signs Date Time Temp Pulse Resp B/P (MAP) Pulse Ox O2 Delivery O2 Flow Rate FiO2 02/27/17 17:22 97.4 102 16 103/64 (77) 98 02/27/17 05:49 97.6 108 16 98/61 (73) 100 02/26/17 18:47 93.0 93 18 125/75 (92) 100 Physical Exam Right medial ankle with central wound 1cm diameter with 50% fibrotic, 50% granular base, more posteriorly there is a 1.5cm x 0.8cm granular superficial wound. palpable pulses. warm skin temperature. sensation intact to light touch Laboratory Laboratory Tests Test 02/27/17 13:38 Blood Urea Nitrogen 12 Creatinine 0.69 Random Glucose 77 Calcium Level 8.9 Sodium Level 137 Potassium Level 3.7 Chloride Level 98 Carbon Dioxide Level 34.5 Anion Gap 5 Estimat Glomerular Filtration Rate 118 Hemoglobin A1c 5.4 Triglycerides Level 101 Cholesterol Level 138 LDL Cholesterol 49 HDL Cholesterol 69.0 Cholesterol/HDL Ratio 2.00 Result Diagram: 02/25/17 1155 02/27/17 1338 Imaging Last [address] 02/26/17 1047 Signed Impressions: Service Date/Time: Sunday, February 26, 2017 10:57 - CONCLUSION: Slight atrophic changes without any acute process. Yahaira Coello MD Assessment and Plan Assessment and Plan Ulcers Right medial ankle, stable Ordered daily scrubbing with hibiclens then santyl for daily dressing changes to central wound, gentamicin to granular wounds with bordered gauze dressing No surgical intervention needed at this time Podiatry signing off. Reconsult if new issues arise Olga Knight DPM Feb 27, 2017 18:46
[2017-02-27] MEDS: REMOVE OLD NICODERM (NICOTINE) PATCH T-DERMAL SCH (21:00)
[2017-02-27] MEDS: diphenhydrAMINE HCL 50 MG CAP PO PRN (21:53)
[2017-02-27] MEDS: ACETAMINOPHEN 325 MG TAB PO PRN (21:54)
[2017-02-28 05:36] VITALS: BP 121/61; PULSE 90; RESP 17; TEMP 98.3; O2SAT 98
--- NOTE | 2017-02-28 06:55 | MB ---
cc: ARMANI RUFF MD DATE OF CONSULTATION 02/27/2017 REASON FOR CONSULTATION History of old CVA please assess for cognitive dysfunction. HISTORY OF PRESENT ILLNESS Mr. Pina is a 56-year-old male who is being assessed in the psychiatry unit or evaluation of cognitive function. He comes to the [facility] under the Ramirez Act. The patient was in a bad living situation and on was not comprehending to the etiology of his situation. The patient is not certain whether he had a stroke, but he says likely he does not have a history of stroke or TIA or head trauma. He states that he has difficulty in remembering events and names. He has struggled with finding a job and he has difficulty walking that has become worse and he had sustained multiple falls and he has history of right hip fracture with hip replacement in the . He does not follow up with a primary care physician and he is not aware whether he has had other medical disorders. REVIEW OF SYSTEMS A 12-point review of systems is negative except for what is stated in the HPI. PAST MEDICAL HISTORY 1. Multiple falls 2. Questionable history of stroke with no residual deficit. SOCIAL HISTORY Frequent alcohol and marijuana user. ALLERGIES No known allergies. FAMILY HISTORY Noncontributory SOCIAL HISTORY Single, no children. No siblings. MEDICATIONS Not applicable. PAST SURGICAL HISTORY Right hip replacement status post fall. EXAMINATION GENERAL: Awake, alert, pale, poor historian, uses a walker for stability as he states. HEENT: Atraumatic, normocephalic. Intact hearing and intact vision. NECK: Carotids, no carotid bruit. No signs of meningeal irritation. CARDIOVASCULAR: Regular rate and rhythm. RESPIRATORY: Clear to auscultation. No wheezes. GASTROINTESTINAL: Soft, abdomen, no tenderness. MUSCULOSKELETAL: No clubbing, cyanosis or edema. NEUROLOGIC: Awake, alert, and oriented to person and time, year 2006, monday, today is Monday, february which is correct and he knew the name of the president. He knows he is in the hospital in [place]. No dysarthria. No dysphasia. Intact naming. Intact repetition. Cranial nerves II-XII are grossly intact. Upper extremities 5/5 bilateral symmetrical. No abnormal movement, normal tone. Lower extremities 5/5 bilateral and symmetrical. Normal tone. Reflexes 1+ bilateral symmetrical. Plantars are bilateral downgoing. Sensation is intact throughout. Intact stance, wide- based gait. Positive Romberg sign. PSYCHIATRIC: Cooperative. No hallucinations. DIAGNOSTIC STUDIES White blood cells 8.2, hemoglobin 13.3, platelet 308. Sodium 137, potassium 3.7 , HDL elevated at 69, LDL 49. Urine tox is negative. DIAGNOSTICS IMAGING - CT brain without contrast revealed slight atrophic changes without acute process and mildly dilated ventricles. DIAGNOSTIC IMPRESSION 1. Cognitive decline/memory difficulty. 2. Multiple falls/instability with walking. 3. Questionable history of stroke. PLAN 1. Neuro checks q4 hourly 2. MRI of the brain without contrast. 3. Obtain vitamin B12 level and folate. 4. PT/OT recommendations are appreciated. 5. Fall precautions. 6. I discussed the case with the registered nurse Alena. 7. I discussed the case with the patient. Thank you for the opportunity to participate in the care of your patient. MD BETTINA Thompson/UMA /9:33 PM /6:36 AM [email or web address]
[2017-02-28] MEDS: COLLAGENASE OINT 30 GM TUBE TOPICAL SCH (08:21)
[2017-02-28] MEDS: REMOVE OLD NICODERM (NICOTINE) PATCH T-DERMAL SCH (08:24)
[2017-02-28] MEDS: NICOTINE 21 MG/24 HR PATCH T-DERMAL SCH (08:24)
--- NOTE | 2017-02-28 12:24 | PD.PSY.CON ---
Provisional Diagnosis Admission Date Feb 26, 2017 at 11:11 [place]. Alzheimer's disease early-onset g 30.0 dementia another disease categories f 02.81 History of Present Illness Service Psychiatry Consult Requested By Dr. Brannon Reason for Consult Second opinion Primary Care Physician No Primary Care Physician HPI Condition is a 56-year-old white male comes here under Ramirez act by the [facility]'s office dated 02/24/17 at 1612 hrs. that Jose reviewed and agreed with it essentially is stating that he Jose observed several environmental hazards in Escobar's residents. Including black mold growing on the floors and chapa, a large puddle of standing water on the floor of the kitchen and living room, dog feces on the floor, garbage on the floors and contours in approximately 15 bottles of urine on the floor in the living room Kelly Garcia attempted to speak with Escobar in depth in reference to his living situation but found did immediately became apparent Escobar did not fully comprehend the reality of his situations. Escobar stated he thought the year was 2005. Escobar stated he was not having thoughts about harming himself or others but he was not sure if was able care for himself any longer. Based on several of Escobar's confused statements became apparent Escobar was unable to determine if mental health evaluation was necessary appropriate also was unable to advise if he has any willing family members to assist him. Patient seen screened in the ED urine toxicology negative blood alcohol level: Negative. Patient seen in his room with nurse Alena patient initially irritable questioning why he is admitted to the psychiatric unit. He is diffusely disoriented though is able to denies she is in a hospital he is in [place] he thought the year was 1995 he could not identify the month the date or the day. He states he came down here from [place] about a month ago to do "paperwork" did visit with his mother and father. [facility] stated that he had a stroke a few months ago the left week that his box icer broke giving various excuses for of the large amounts of urine started problems in his home. However the counselor has talked to elementary school social worker is involved with the family. It appears patient's mother a number of years ago. That he has been down here for significant period of time his misuse alcohol greater than what he expressed to me. There is been living in the [facility] for an extended period of time. She denies any prior psychiatric contact hospitalization psychotropic medications except when he was discharged with a DUI a number of years ago he denies any physical sexual abuse. Denies any mental illness in the family. He states he is single has no children. At this time I feel patient does meet criteria for involuntary psychiatric hospitalization the Ramirez act I will do first opinion request opinion. I also feel that he doesn't have capacity to make appropriate decisions concerning his care thus I'll ask for healthcare surrogate and guardian advocate. He is on no specific medications at this time. We will the hospitalist consult with us, will have neurology consult with us. We will have PT consult with us. The patient is a 56 years old man, who was admitted via ER because he came under Ramirez act initiated by [facility]'s office due to self- neglect behavior and living in the proper conditions. Patient has psychiatric history of dementia. Patient was consulted to me for second opinion. He reports feeling okay. Patient says that he doesn't even know the reason he is in the hospital. He seems to be quite disoriented and confused, but no agitation, no aggressive behavior, no prominent paranoia observed. He denies suicidal or homicidal ideation, he denies visual and auditory hallucinations. Review of Systems Except as stated in HPI: all other systems reviewed are Neg Past Family Social History Coded Allergies: No Known Allergies (Verified Adverse Reaction, Unknown, 02/25/17) No Active Prescriptions or Reported Meds Current Medications Medications (Trade) Dose Ordered Sig/Mikey Route Start Time Stop Time Status Last Admin (Ativan Inj) 1 mg Q6H PRN IM 02/26/17 11:15 (Ativan) 0.5 mg Q12H PRN PO 02/26/17 11:15 02/26/17 22:33 (Habitrol 21 Mg Patch.24 Hr) 1 patch DAILY T-DERMAL 02/27/17 09:00 02/28/17 08:24 (Romazicon Inj) 0.2 mg Q1M PRN IV PUSH 02/26/17 11:15 (Ativan) 1 mg Q4H PRN PO 02/26/17 11:15 (Ativan Inj) 1 mg Q4H PRN IV PUSH 02/26/17 11:15 (Ativan) 2 mg Q2H PRN PO 02/26/17 11:15 (Ativan Inj) 2 mg Q2H PRN IV PUSH 02/26/17 11:15 (Ativan Inj) 2 mg Q1H PRN IV PUSH 02/26/17 11:15 (Ativan Inj) 2 mg Q15M PRN IV PUSH 02/26/17 11:15 Miscellaneous Information 1 HS T-DERMAL 02/26/17 21:00 (Benadryl) 50 mg HS PRN PO 02/27/17 13:00 02/27/17 21:53 (Tylenol) 650 mg Q4H PRN PO 02/27/17 13:00 02/27/17 21:54 (Milk Of Magnesia Liq) 30 ml DAILY PRN PO 02/27/17 13:00 (Mag-Al Plus Susp Liq) 30 ml Q6H PRN PO 02/27/17 13:00 (Atarax) 50 mg Q6H PRN PO 02/27/17 13:00 (Santyl Oint) 1 applic DAILY TOPICAL 02/28/17 09:00 02/28/17 08:21 Patient's Strengths (min. 2) Patient verbal labile axis health care Physical Exam Vital Signs Vital Signs Date Time Temp Pulse Resp B/P (MAP) Pulse Ox O2 Delivery O2 Flow Rate FiO2 02/28/17 05:36 98.3 90 17 121/61 (81) 98 02/26/17 11:47 Room Air I/O 02/28/17 02/28/17 03/01/17 08:00 16:00 00:00 Intake Total 960 ml Balance 960 ml Lab Results Test 02/27/17 13:38 Blood Urea Nitrogen 12 MG/DL Creatinine 0.69 MG/DL Random Glucose 77 MG/DL Calcium Level 8.9 MG/DL Sodium Level 137 MEQ/L Potassium Level 3.7 MEQ/L Chloride Level 98 MEQ/L Carbon Dioxide Level 34.5 MEQ/L Anion Gap 5 MEQ/L Estimat Glomerular Filtration Rate 118 ML/MIN Hemoglobin A1c 5.4 % Triglycerides Level 101 MG/DL Cholesterol Level 138 MG/DL LDL Cholesterol 49 MG/DL HDL Cholesterol 69.0 MG/DL Cholesterol/HDL Ratio 2.00 RATIO Vitamin B12 Level 330 PG/ML Mental Status Examination Appearance: Disheveled Consciousness: Alert Orientation: Person, [facility] Date/ Time (thinks it's 1995 do not know the time did not know the day of an 8), Situation (notices a hospital) Motor Activity: Abnormal gait (use his walker) Speech: Unremarkable Language: Adequate Fund of Knowledge: Adequate Attention and Concentration: Easily Distracted Memory: Unremarkable Mood: Irritable Affect: Other (slight increase range and intensity) Thought Process & Associations: Disorganized Thought Content: Other (disorganized) Hallucination Type: None (denies) Delusion Type: None Suicidal Ideation: No Suicidal Plan: No Suicidal Intention: No Homicidal Ideation: No Homicidal Plan: No Homicidal Intention: No Insight: Poor Judgment: Poor Assessment & Plan Problem List: (1) ALZHEIMER'S DISEASE WITH EARLY ONSET ICD Codes: G30.0 - ALZHEIMER'S DISEASE WITH EARLY ONSET (2) DEMENTIA IN OTH DISEASES CLASSD ELSWHR W BEHAVIORAL DISTURB ICD Codes: F02.81 - DEMENTIA IN OTH DISEASES CLASSD ELSWHR W BEHAVIORAL DISTURB Assessment & Plan: I have seen and examined this patient, reviewed the documentation, I agree and concur with Dr. Brannon's assessment and plan. Consul appreciate it. Assessment & Plan Estimated LOS: days Request HC Surrog/Guard Advoc?: Yes Cruz Birch MD Feb 28, 2017 12:24
--- NOTE | 2017-02-28 14:53 | HHI.PYPN ---
Subjective Chief Complaint: confused living and squalor Remarks Patient seen in day room with nurse Nahomy, chart review, patient compliant medication. Patient continues somewhat diffusely confused showing no insight his living situation that led to this admission. He states he just wants to go home. Though is been no significant behavioral problems. He does denies suicidality homicidality voices or visions. Review of Systems Except as stated in HPI: all other systems reviewed are Neg Mental Status Examination Appearance: Disheveled Consciousness: Alert Orientation: Person, Place (noticed a hospital in [facility]), Date/ Time (thinks it'1995 do not know the time did not know the day of an ), Situation (notices a hospital) Motor Activity: Abnormal gait (use his walker) Speech: Unremarkable Language: Adequate Fund of Knowledge: Adequate Attention and Concentration: Easily Distracted Memory: Unremarkable Mood: Irritable Affect: Other (slight increase range and intensity) Thought Process & Associations: Disorganized Thought Content: Other (disorganized) Hallucination Type: None (denies) Delusion Type: None Suicidal Ideation: No Suicidal Plan: No Suicidal Intention: No Homicidal Ideation: No Homicidal Plan: No Homicidal Intention: No Insight: Poor Judgment: Poor Results Vitals/IOs Vital Signs Date Time Temp Pulse Resp B/P (MAP) Pulse Ox O2 Delivery O2 Flow Rate FiO2 02/28/17 05:36 98.3 90 17 121/61 (81) 98 02/26/17 11:47 Room Air Intake and Output 02/28/17 02/28/17 03/01/17 08:00 16:00 00:00 Intake Total 960 ml Balance 960 ml Assessment & Plan Problem List: (1) ALZHEIMER'S DISEASE WITH EARLY ONSET ICD Codes: G30.0 - ALZHEIMER'S DISEASE WITH EARLY ONSET (2) DEMENTIA IN OTH DISEASES CLASSD ELSWHR W BEHAVIORAL DISTURB ICD Codes: F02.81 - DEMENTIA IN OTH DISEASES CLASSD ELSWHR W BEHAVIORAL DISTURB Assessment & Plan Estimated LOS: days patient continues confused demented somewhat irritable but no behavioral problem Justification for Cont. Inpt. At this time patient will decompensate if placed a lower level of care Discharge Planning Patient remains problematic concerning patient's denial of problems in the condition that is described for his domicile Request HC Surrog/Guard Advoc?: Yes Travis Brannon MD Feb 28, 2017 14:52
[2017-02-28 18:09] VITALS: BP 96/58; PULSE 90; RESP 18; TEMP 97.5; O2SAT 100
--- NOTE | 2017-02-28 18:11 | RADRPT ---
EXAM DATE/TIME: 02/28/2017 17:35 [facility] COMPARISON: MRI BRAIN W/O CONTRAST, September 22, 2015, 16:05. INDICATIONS : Hydrocephalus. Altered mental status, episodes of aphasia. MEDICAL HISTORY : None. SURGICAL HISTORY : Right hip replacement. ENCOUNTER: Subsequent ACUITY: 2 day PAIN SCORE: 0/10 LOCATION: head. TECHNIQUE: Multiplanar, multisequence MRI of the brain was performed without contrast. FINDINGS: Ventricular size is stable and mildly prominent. No recent infarct. No mass, shift. Minimal white mat ter ischemic changes. Mild cortical volume loss. No abnormal extra-axial fluid. CONCLUSION: 1. Mildly prominent ventricles but stable since September 2015. No recent infarct. No mass or shift. No acute findings. Ej Oden MD on February 28, 2017 at 18:06 Board Certified Radiologist. This report was verified electronically.
[2017-02-28] MEDS: diphenhydrAMINE HCL 50 MG CAP PO PRN (20:38)
[2017-02-28] MEDS: ACETAMINOPHEN 325 MG TAB PO PRN (20:53)
--- NOTE | 2017-02-28 22:28 | RADRPT ---
EXAM DATE/TIME: 02/28/2017 19:19 [facility] COMPARISON: No previous studies available for comparison. INDICATIONS : Increased liver function. MEDICAL HISTORY : Cerebrovascular disease. Immunological disorder unknown type. Psych. SURGICAL HISTORY : None. ENCOUNTER: Subsequent ACUITY: 1 day PAIN SCORE: 10 LOCATION: Right upper quadrant MEASUREMENTS: LIVER: 18.1 cm length COMMON DUCT: 5 mm RIGHT KIDNEY: 11.3 x 4.8 x 5.3 cm SPLEEN: 11.6 cm length FINDINGS: Fatty liver mildly enlarged. Gallbladder wall thickening to 5 mm. Probable gallbladder polyp. Right k idney unremarkable. 1.7 cm left renal cyst. Spleen without focal lesion. No free fluid. Portal venous flow normal direction. CONCLUSION: 1. Fatty liver mildly enlarged 2. Gallbladder wall thickening with probable gallbladder polyp. No stones or biliary ductal dilatatio n. No free fluid. Ej Oden MD on February 28, 2017 at 22:24 Board Certified Radiologist. This report was verified electronically.
--- NOTE | 2017-02-28 22:41 | HHI.PR ---
Subjective Remarks doing well sitting on the chair He denied any new complain Afebrile, no chest pain or short of breath Objective Vitals Vital Signs Date Time Temp Pulse Resp B/P (MAP) Pulse Ox O2 Delivery O2 Flow Rate FiO2 02/28/17 18:09 97.5 90 18 96/58 (71) 100 02/28/17 05:36 98.3 90 17 121/61 (81) 98 I/O 02/27/17 02/27/17 02/27/17 02/28/17 02/28/17 02/28/17 07:00 15:00 23:00 07:00 15:00 23:00 Intake Total 0 ml 1440 ml 720 ml 1660 ml Balance 0 ml 1440 ml 720 ml 1660 ml Intake Oral 0 ml 1440 ml 720 ml 1660 ml # Voids 2 2 1 2 5 # Bowel Movements 0 Result Diagram: 02/25/17 1155 02/27/17 1338 Objective Remarks GENERAL: This is a well-nourished, well-developed patient, in no apparent distress. CARDIOVASCULAR: Regular rate and rhythm without murmurs, gallops, or rubs. RESPIRATORY: Clear to auscultation. Breath sounds equal bilaterally. No wheezes , rales, or rhonchi. GASTROINTESTINAL: Abdomen soft, non-tender, nondistended. Normal active bowel sounds MUSCULOSKELETAL: Extremities without clubbing, cyanosis, or edema.right lower foot in dressing NEURO: Alert & Oriented x4 to person, place, time, situation. Moves all ext x4 A/P Assessment and Plan 56 y/o male admitted to psych , we are consulted for R foot ulcers , looks dry , appreciate podiatry consultation, cont wound care and dressing , no signs of systemic infx inc transaminase and alk phos mostly alcholic liver cirrhosis/fatty liver >> check liver u/s and hepatitis pannel alchol abuse >>councelled CIWA protocol hx of dementia and Alzheimer which pt denied ?hx of ontine cva >> neurology consulted, appreciate his input, brain CT and MRI has been ordered no acute finding Discharge Planning we'll sign off in a.m. if hepatitis panel and liver ultrasound does not require inpatient further workup or treatment Tere Alicea MD Feb 28, 2017 22:41
[2017-03-01] MEDS: hydrOXYzine HCL 50 MG TAB PO PRN ×2 (00:36→23:45)
[2017-03-01 05:43] VITALS: BP 93/64; PULSE 111; RESP 17; TEMP 98.2; O2SAT 98
[2017-03-01] MEDS: COLLAGENASE OINT 30 GM TUBE TOPICAL SCH (08:35)
[2017-03-01] MEDS: NICOTINE 21 MG/24 HR PATCH T-DERMAL SCH (08:35)
[2017-03-01] MEDS: ACETAMINOPHEN 325 MG TAB PO PRN (09:51)
[2017-03-01 12:47] LABS: ALBUMIN 3.2 GM/DL (3.4-5.0); DIRECT BILIRUBIN ADULT 0.1 MG/DL (0.0-0.2)
[2017-03-01 12:49] LABS: INDIRECT BILIRUBIN 0.2 MG/DL (0.0-0.8); TOTAL BILIRUBIN ADULT 0.3 MG/DL (0.2-1.0)
--- NOTE | 2017-03-01 13:46 | HHI.PR ---
Review/Management Diagnosis 1. Cognitive decline/memory difficulty. 2. Multiple falls/instability with walking. 3. Questionable history of stroke. Plan 1. Neuro checks q4 hourly 2. Consult neuro surgery for possible normal pressure hydrocephalus 3. PT/OT recommendations are appreciated. 4. Fall precautions. 5. There is no radiologic evidence of a remote stroke 6. Dr. [place] S[place], neurologist, will follow up Diagnosis/Plan: Subjective Subjective Comments No acute events reported MRI brain revealed dilated ventricles Vitamin B12 is low therapeutic Active Medications Current Medications Medications (Trade) Dose Ordered Sig/Mikey Route Start Time Stop Time Status Last Admin (Ativan Inj) 1 mg Q6H PRN IM 02/26/17 11:15 (Ativan) 0.5 mg Q12H PRN PO 02/26/17 11:15 02/26/17 22:33 (Habitrol 21 Mg Patch.24 Hr) 1 patch DAILY T-DERMAL 02/27/17 09:00 03/01/17 08:35 (Romazicon Inj) 0.2 mg Q1M PRN IV PUSH 02/26/17 11:15 (Ativan) 1 mg Q4H PRN PO 02/26/17 11:15 (Ativan Inj) 1 mg Q4H PRN IV PUSH 02/26/17 11:15 (Ativan) 2 mg Q2H PRN PO 02/26/17 11:15 (Ativan Inj) 2 mg Q2H PRN IV PUSH 02/26/17 11:15 (Ativan Inj) 2 mg Q1H PRN IV PUSH 02/26/17 11:15 (Ativan Inj) 2 mg Q15M PRN IV PUSH 02/26/17 11:15 Miscellaneous Information 1 HS T-DERMAL 02/26/17 21:00 (Benadryl) 50 mg HS PRN PO 02/27/17 13:00 02/28/17 20:38 (Tylenol) 650 mg Q4H PRN PO 02/27/17 13:00 03/01/17 09:51 (Milk Of Magnesia Liq) 30 ml DAILY PRN PO 02/27/17 13:00 (Mag-Al Plus Susp Liq) 30 ml Q6H PRN PO 02/27/17 13:00 (Atarax) 50 mg Q6H PRN PO 02/27/17 13:00 03/01/17 00:36 (Santyl Oint) 1 applic DAILY TOPICAL 02/28/17 09:00 03/01/17 08:35 Allergies Allergies Coded Allergies No Known Allergies (Verified Adverse Reaction, Unknown, 02/25/17) Review of Systems All other ROS: ROS reviewed as documented in chart Exam I&O / VS 03/01/17 03/01/17 03/02/17 15:00 23:00 07:00 Intake Total 960 ml Balance 960 ml Intake Oral 960 ml Vital Signs Date Time Temp Pulse Resp B/P (MAP) Pulse Ox O2 Delivery O2 Flow Rate FiO2 03/01/17 05:43 98.2 111 17 93/64 (74) 98 02/28/17 18:09 97.5 90 18 96/58 (71) 100 Respiratory: Lungs CTA, Non-labored respirations, BS equal Cardiology: Normal rate, Regular Rhythm Musculoskeletal: Swelling Objective Radiology Results Last 72 hours Impressions Liver Ultrasound 02/28/17 0000 Signed Impressions: Service Date/Time: Tuesday, February 28, 2017 19:19 - CONCLUSION: 1. Fatty liver mildly enlarged 2. Gallbladder wall thickening with probable gallbladder polyp. No stones or biliary ductal dilatation. No free fluid. Ej Oden MD Brain MRI 02/28/17 0000 Signed Impressions: Service Date/Time: Tuesday, February 28, 2017 17:35 - CONCLUSION: 1. Mildly prominent ventricles but stable since September 2015. No recent infarct. No mass or shift. No acute findings. Ej Oden MD Micro and Labs Laboratory Tests Test 03/01/17 11:40 Total Bilirubin 0.3 Direct Bilirubin 0.1 Indirect Bilirubin 0.2 Aspartate Amino Transf (AST/SGOT) 51 Alanine Aminotransferase (ALT/SGPT) 73 Alkaline Phosphatase 113 Total Protein 7.0 Albumin 3.2 Nano Collins MD Mar 01, 2017 13:46
--- NOTE | 2017-03-01 14:46 | PD.TTN ---
Patient Problems 1. Discharge planning 2. Medication compliance 3. Knowledge deficit 4. Lack of coping skills Progress Toward Goals Provider Present: Dr. Scott Brannon Provider Input: 03/01 patient is very confused Psychiatric Counselors Present: Antoinette Barbour LCSW Psych Therapist Input: 03/01 patient is in need of a placement but will need help from [facility] and more insurance coverage/assistance, his house is reporeted condemned Group Spec/RT/OT/TOURE Present: Narinder Bueno OT Group Spec/RT/OT/TOURE Input: 03/01 does not attend any groups at this time Antoinette Barbour LCSW Mar 01, 2017 14:46
--- NOTE | 2017-03-01 15:12 | HHI.PYPN ---
Subjective Chief Complaint: confused living and squalor Remarks Is seen in day room with nurse Patience, chart reviewed, patient compliant medication. To is diffusely confused. Continues to deny his living environment. Patient scheduled for [employer] court tomorrow. Review of Systems Except as stated in HPI: all other systems reviewed are Neg Mental Status Examination Appearance: Disheveled Consciousness: Alert Orientation: Person, Place (noticed a hospital in [facility]), Date/ Time (thinks it'1995 do not know the time did not know the day of an ), Situation (notices a hospital) Motor Activity: Abnormal gait (use his walker) Speech: Unremarkable Language: Adequate Fund of Knowledge: Adequate Attention and Concentration: Easily Distracted Memory: Unremarkable Mood: Irritable Affect: Other (slight increase range and intensity) Thought Process & Associations: Disorganized Thought Content: Other (disorganized) Hallucination Type: None (denies) Delusion Type: None Suicidal Ideation: No Suicidal Plan: No Suicidal Intention: No Homicidal Ideation: No Homicidal Plan: No Homicidal Intention: No Insight: Poor Judgment: Poor Results Labs Test 03/01/17 11:40 Total Bilirubin 0.3 MG/DL Direct Bilirubin 0.1 MG/DL Indirect Bilirubin 0.2 MG/DL Aspartate Amino Transf (AST/SGOT) 51 U/L Alanine Aminotransferase (ALT/SGPT) 73 U/L Alkaline Phosphatase 113 U/L Total Protein 7.0 GM/DL Albumin 3.2 GM/DL Vitals/IOs Vital Signs Date Time Temp Pulse Resp B/P (MAP) Pulse Ox O2 Delivery O2 Flow Rate FiO2 03/01/17 05:43 98.2 111 17 93/64 (74) 98 02/26/17 11:47 Room Air Intake and Output 03/01/17 03/01/17 03/02/17 08:00 16:00 00:00 Intake Total 840 ml 360 ml Output Total 2 ml Balance 838 ml 360 ml Assessment & Plan Problem List: (1) ALZHEIMER'S DISEASE WITH EARLY ONSET ICD Codes: G30.0 - ALZHEIMER'S DISEASE WITH EARLY ONSET (2) DEMENTIA IN OTH DISEASES CLASSD ELSWHR W BEHAVIORAL DISTURB ICD Codes: F02.81 - DEMENTIA IN OTH DISEASES CLASSD ELSWHR W BEHAVIORAL DISTURB Assessment & Plan Estimated LOS: days patient continues confused demented, no insight. Compliant medications. Scheduled for [address] tomorrow Justification for Cont. Inpt. At this time patient will decompensate the placed in a lower level of care Discharge Planning Placement may become problematic Request HC Surrog/Guard Advoc?: Yes Travis Brannon MD Mar 01, 2017 15:12
--- NOTE | 2017-03-01 15:14 | HHI.PR ---
Subjective Remarks Follow-up visit of right foot ulcers, elevated LFTs, and alkaline phosphatase. Patient seen and examined resting in his room resting comfortably in bed. He denies any fevers, chills, nausea, vomiting, diarrhea or chest pains. He is also denying any headache or changes in vision. He tells me that he has just received very bad news from previous doctor who is in to see him and was told that his mother has just . He is visibly upset but is able to interact and answer questions. He tells me that he believed it was 2005, he is oriented to place and self and is aware that Martine is president. I briefly explained to patient why medical team is following him and patient questions what would make his liver enzymes go up. I briefly discussed possible situations in which the liver is affected such as alcohol consumption. He tells me that he normally does not drink very much, and asked how much she drinks he states he drinks 8 shots of liquor just once a night. He states "that 's not that much". He also been tells me that he only drinks because he is having trouble sleeping. Objective Vitals Vital Signs Date Time Temp Pulse Resp B/P (MAP) Pulse Ox O2 Delivery O2 Flow Rate FiO2 03/01/17 05:43 98.2 111 17 93/64 (74) 98 02/28/17 18:09 97.5 90 18 96/58 (71) 100 I/O 02/28/17 02/28/17 02/28/17 03/01/17 03/01/17 03/01/17 07:00 15:00 23:00 07:00 15:00 23:00 Intake Total 1660 ml 480 ml 240 ml 960 ml Output Total 2 ml Balance 1660 ml 480 ml 238 ml 960 ml Intake Oral 1660 ml 480 ml 240 ml 960 ml Output Urine Total 2 ml # Voids 2 5 1 2 # Bowel Movements 3 Result Diagram: 02/25/17 1155 02/27/17 1338 Imaging Last Impressions Liver Ultrasound 02/28/17 0000 Signed Impressions: Service Date/Time: Tuesday, February 28, 2017 19:19 - CONCLUSION: 1. Fatty liver mildly enlarged 2. Gallbladder wall thickening with probable gallbladder polyp. No stones or biliary ductal dilatation. No free fluid. Ej Oden MD Brain MRI 02/28/17 0000 Signed Impressions: Service Date/Time: Tuesday, February 28, 2017 17:35 - CONCLUSION: 1. Mildly prominent ventricles but stable since September 2015. No recent infarct. No mass or shift. No acute findings. Ej Oden MD Head CT 02/26/17 1047 Signed Impressions: Service Date/Time: Sunday, February 26, 2017 10:57 - CONCLUSION: Slight atrophic changes without any acute process. Yahaira Coello MD Objective Remarks GENERAL: This is a well-nourished, well-developed patient, in no apparent distress. SKIN: Cool and dry. Right foot inner ankle with wound, dressing dry and intact. Stage II visible wounds with mildly macerated skin surrounding, no drainage. HEAD: Atraumatic. Normocephalic. EYES: Pupils equal round and reactive. Extraocular motions intact. No scleral icterus. No injection or drainage. ENT: Nose without bleeding. Airway patent. NECK: Trachea midline. No JVD. Supple. CARDIOVASCULAR: Regular rate and rhythm without murmurs, gallops, or rubs. RESPIRATORY: Clear to auscultation. Breath sounds equal bilaterally. No wheezes , rales, or rhonchi. GASTROINTESTINAL: Abdomen soft, non-tender, nondistended. MUSCULOSKELETAL: Extremities without clubbing, cyanosis, or edema. No joint tenderness, effusion, or edema noted. NEUROLOGICAL: Awake and alert, oriented to self, location, confusion regarding time. Motor and sensory grossly within normal limits. Moves all extremities spontaneously, normal speech, no facial droop. A/P Assessment and Plan 56-year-old man admitted to inpatient psychiatry after being found at home by police with questionable ability to take care of himself. Patient with Alzheimer/dementia admitted to inpatient psychiatry for further evaluation. Medical team consulted for ongoing medical management. Alzheimer's dementia - Treatment per psychiatry ? History of CVA - Head CT completed on 02/26 reviewed, slight atrophic changes without any acute process. - Brain MRI completed on 02/28 reviewed, mildly prominent ventricles but stable since September 2015. No recent infarct. No mass or shift. No acute findings. - Neurology has been following patient, continue neuro checks every 4 hours, mentions consulted neurosurgery for possible normal pressure hydrocephalus. (No official consult placed). does not see any evidence of remote stroke. - Continue PT/OT Transaminase Elevated alkaline phosphatase - Liver ultrasound completed on 02/27 reviewed, fatty liver mildly enlarged. Gallbladder wall thickening with probable gallbladder polyp. No stones or biliary duct dilation. No free fluid. Patient denies any abdominal pain or discomfort. - Hepatitis panel pending - Elevated levels most likely related to combination of alcohol abuse along with fatty liver, however will await hepatitis panel. Alcohol abuse - [facility] protocol - Counseled on cessation Right stage II wound - Patient seen and evaluated by podiatry who has made recommendations for Santyl as well as stressing instructions, appreciate recommendations - Patient has been afebrile, no leukocytosis on last CBC. DVT prophylaxis - Patient is ambulating. Melvin Zelaya Mar 01, 2017 15:14
[2017-03-01 18:00] VITALS: BP 111/72; PULSE 89; RESP 18; TEMP 98.2; O2SAT 100
[2017-03-01] MEDS: REMOVE OLD NICODERM (NICOTINE) PATCH T-DERMAL SCH (20:23)
[2017-03-01] MEDS: diphenhydrAMINE HCL 50 MG CAP PO PRN (21:05)
[2017-03-02 05:44] VITALS: BP 131/67; PULSE 87; RESP 16; TEMP 98.9; O2SAT 97
[2017-03-02] MEDS: NICOTINE 21 MG/24 HR PATCH T-DERMAL SCH (08:28)
[2017-03-02] MEDS: COLLAGENASE OINT 30 GM TUBE TOPICAL SCH (08:28)
--- NOTE | 2017-03-02 10:10 | HHI.PYPN ---
Subjective Chief Complaint: confused living and squalor Remarks Patient seen in [address] patient retained by Judge Victoria with [place] to be guardian advocate. Patient continues somewhat confused and confused showing no insight. Continues to wish to be discharged. He denied the conditions in his home. Placement may be somewhat problematic though will continue to work with this Review of Systems Except as stated in HPI: all other systems reviewed are Neg Mental Status Examination Appearance: Disheveled Consciousness: Alert Orientation: Person, Place (noticed a hospital in [facility]), Date/ Time (thinks it'1995 do not know the time did not know the day of an 8), Situation (notices a hospital) Motor Activity: Abnormal gait (use his walker) Speech: Unremarkable Language: Adequate Fund of Knowledge: Adequate Attention and Concentration: Easily Distracted Memory: Unremarkable Mood: Irritable Affect: Other (slight increase range and intensity) Thought Process & Associations: Disorganized Thought Content: Other (disorganized) Hallucination Type: None (denies) Delusion Type: None Suicidal Ideation: No Suicidal Plan: No Suicidal Intention: No Homicidal Ideation: No Homicidal Plan: No Homicidal Intention: No Insight: Poor Judgment: Poor Results Labs Test 03/01/17 11:40 Total Bilirubin 0.3 MG/DL Direct Bilirubin 0.1 MG/DL Indirect Bilirubin 0.2 MG/DL Aspartate Amino Transf (AST/SGOT) 51 U/L Alanine Aminotransferase (ALT/SGPT) 73 U/L Alkaline Phosphatase 113 U/L Total Protein 7.0 GM/DL Albumin 3.2 GM/DL Vitals/IOs Vital Signs Date Time Temp Pulse Resp B/P (MAP) Pulse Ox O2 Delivery O2 Flow Rate FiO2 03/02/17 05:44 98.9 87 16 131/67 (88) 97 02/26/17 11:47 Room Air Intake and Output 03/02/17 03/02/17 03/03/17 08:00 16:00 00:00 Intake Total 120 ml 240 ml Balance 120 ml 240 ml Assessment & Plan Problem List: (1) ALZHEIMER'S DISEASE WITH EARLY ONSET ICD Codes: G30.0 - ALZHEIMER'S DISEASE WITH EARLY ONSET (2) DEMENTIA IN OTH DISEASES CLASSD ELSWHR W BEHAVIORAL DISTURB ICD Codes: F02.81 - DEMENTIA IN OTH DISEASES CLASSD ELSWHR W BEHAVIORAL DISTURB Assessment & Plan Estimated LOS: days patient retained by Judge Victoria nominate to be guardian advocate. Patient is confusion disoriented. Justification for Cont. Inpt. At this time patient will decompensate placed in the lower level of care Discharge Planning Placement may be problematic related to funding the patient's reluctance Request HC Surrog/Guard Advoc?: Yes Travis Brannon MD Mar 02, 2017 10:10
[2017-03-02] MEDS: ACETAMINOPHEN 325 MG TAB PO PRN ×3 (10:24→21:58)
[2017-03-02 10:55] LABS: HEPATITIS A AB IGM NEGATIVE (NEGATIVE); HEPATITIS B CORE AB IGM NEGATIVE (NEGATIVE); HEPATITIS B SURFACE ANTIGEN NEGATIVE (NEGATIVE); HEPATITIS C AB IgG NEGATIVE (NEGATIVE)
--- NOTE | 2017-03-02 12:48 | HHI.PR ---
Subjective Remarks Follow-up visit of right foot ulcers, elevated LFTs, and alkaline phosphatase. Patient seen and examined resting comfortably in day room. He denies any headaches, visual changes, dizziness, lightheadedness, fevers, chills, abdominal pain or shakiness. Spoke with nurse who does not voice any acute concerns. Objective Vitals Vital Signs Date Time Temp Pulse Resp B/P (MAP) Pulse Ox O2 Delivery O2 Flow Rate FiO2 03/02/17 05:44 98.9 87 16 131/67 (88) 97 03/01/17 18:00 98.2 89 18 111/72 (85) 100 I/O 03/01/17 03/01/17 03/01/17 03/02/17 03/02/17 03/02/17 07:00 15:00 23:00 07:00 15:00 23:00 Intake Total 240 ml 1680 ml 1440 ml 120 ml 480 ml Output Total 2 ml 5 ml Balance 238 ml 1675 ml 1440 ml 120 ml 480 ml Intake Oral 240 ml 1680 ml 1440 ml 120 ml 480 ml Output Urine Total 2 ml 5 ml # Voids 2 1 1 # Bowel Movements 3 3 1 Result Diagram: 02/27/17 1338 Imaging Last Impressions Liver Ultrasound 02/28/17 0000 Signed Impressions: Service Date/Time: Tuesday, February 28, 2017 19:19 - CONCLUSION: 1. Fatty liver mildly enlarged 2. Gallbladder wall thickening with probable gallbladder polyp. No stones or biliary ductal dilatation. No free fluid. Ej Oden MD Brain MRI 02/28/17 0000 Signed Impressions: Service Date/Time: Tuesday, February 28, 2017 17:35 - CONCLUSION: 1. Mildly prominent ventricles but stable since September 2015. No recent infarct. No mass or shift. No acute findings. Ej Oden MD Head CT 02/26/17 1047 Signed Impressions: Service Date/Time: Sunday, February 26, 2017 10:57 - CONCLUSION: Slight atrophic changes without any acute process. Yahaira Coello MD Objective Remarks GENERAL: This is a well-nourished, well-developed patient, in no apparent distress. SKIN: Cool and dry. Right foot inner ankle dressing dry and intact. HEAD: Atraumatic. Normocephalic. EYES: Pupils equal round and reactive. Extraocular motions intact. No scleral icterus. No injection or drainage. ENT: Nose without bleeding. Airway patent. NECK: Trachea midline. No JVD. Supple. CARDIOVASCULAR: Regular rate and rhythm without murmurs, gallops, or rubs. RESPIRATORY: Clear to auscultation. Breath sounds equal bilaterally. No wheezes , rales, or rhonchi. GASTROINTESTINAL: Abdomen soft, non-tender, nondistended. MUSCULOSKELETAL: Extremities without clubbing, cyanosis, or edema. No joint tenderness, effusion, or edema noted. NEUROLOGICAL: Awake and alert. Motor and sensory grossly within normal limits. Moves all extremities spontaneously, normal speech, no facial droop. A/P Assessment and Plan 56-year-old man admitted to inpatient psychiatry after being found at home by police with questionable ability to take care of himself. Patient with Alzheimer/dementia admitted to inpatient psychiatry for further evaluation. Medical team consulted for ongoing medical management. Alzheimer's dementia - Treatment per psychiatry ? History of CVA - Head CT completed on 02/26 reviewed, slight atrophic changes without any acute process. - Brain MRI completed on 02/28 reviewed, mildly prominent ventricles but stable since September 2015. No recent infarct. No mass or shift. No acute findings. - Neurology has been following patient, continue neuro checks every 4 hours, mentions consulting neurosurgery for possible normal pressure hydrocephalus. (No official consult placed). Discussed with nurse, please ask about this when neuro rounds. - No evidence of remote stroke. - Continue PT/OT Transaminase Elevated alkaline phosphatase - Liver ultrasound completed on 02/27 reviewed, fatty liver mildly enlarged. Gallbladder wall thickening with probable gallbladder polyp. No stones or biliary duct dilation. No free fluid. Patient denies any abdominal pain or discomfort. - Hepatitis panel Negative - Elevated levels most likely related to alcohol abuse as they have trended down since he has been in psychiatry unit. Alcohol abuse - [facility] protocol discontinued as he does not have any active tremors. - Counseled on cessation Right stage II wound - Patient seen and evaluated by podiatry who has made recommendations for Santyl as well as stressing instructions, appreciate recommendations - Patient has been afebrile, no leukocytosis on last CBC. DVT prophylaxis - Patient is ambulating. Discussed with nurse. Melvin Zelaya Mar 02, 2017 12:48
[2017-03-02 19:30] VITALS: BP 110/63; PULSE 89; RESP 18; TEMP 97.8; O2SAT 96
[2017-03-02] MEDS: diphenhydrAMINE HCL 50 MG CAP PO PRN (20:14)
[2017-03-02] MEDS: REMOVE OLD NICODERM (NICOTINE) PATCH T-DERMAL SCH (21:00)
[2017-03-02] MEDS: hydrOXYzine HCL 50 MG TAB PO PRN (22:43)
[2017-03-03 06:07] VITALS: BP 107/62; PULSE 100; RESP 16; TEMP 98.2; O2SAT 98
[2017-03-03] MEDS: NICOTINE 21 MG/24 HR PATCH T-DERMAL SCH (09:32)
[2017-03-03] MEDS: COLLAGENASE OINT 30 GM TUBE TOPICAL SCH (09:32)
[2017-03-03] MEDS: ACETAMINOPHEN 325 MG TAB PO PRN ×3 (09:32→23:33)
--- NOTE | 2017-03-03 14:48 | HHI.PYPN ---
Subjective Chief Complaint: confused living and squalor Remarks Patient seen in dayroom of floor staff, chart reviewed, patient compliant medication. Patient remains diffusely confused, though no significant behavioral problems. At this time patient is not on any psychotropic medication. I do not see an indication for it at this time. The patient continues with very little insight. Now stating he just visiting down here and he wants to go back up on 2 L. For now continue treatment Review of Systems Except as stated in HPI: all other systems reviewed are Neg Mental Status Examination Appearance: Disheveled Consciousness: Alert Orientation: Person, Place (noticed a hospital in [facility]), Date/ Time (thinks it'1995 do not know the time did not know the day of an ), Situation (notices a hospital) Motor Activity: Abnormal gait (use his walker) Speech: Unremarkable Language: Adequate Fund of Knowledge: Adequate Attention and Concentration: Easily Distracted Memory: Unremarkable Mood: Irritable Affect: Other (slight increase range and intensity) Thought Process & Associations: Disorganized Thought Content: Other (disorganized) Hallucination Type: None (denies) Delusion Type: None Suicidal Ideation: No Suicidal Plan: No Suicidal Intention: No Homicidal Ideation: No Homicidal Plan: No Homicidal Intention: No Insight: Poor Judgment: Poor Results Vitals/IOs Vital Signs Date Time Temp Pulse Resp B/P (MAP) Pulse Ox O2 Delivery O2 Flow Rate FiO2 03/03/17 06:07 98.2 100 16 107/62 (77) 98 Intake and Output 03/03/17 03/03/17 03/04/17 08:00 16:00 00:00 Intake Total 0 ml 480 ml Balance 0 ml 480 ml Assessment & Plan Problem List: (1) ALZHEIMER'S DISEASE WITH EARLY ONSET ICD Codes: G30.0 - ALZHEIMER'S DISEASE WITH EARLY ONSET (2) DEMENTIA IN OTH DISEASES CLASSD ELSWHR W BEHAVIORAL DISTURB ICD Codes: F02.81 - DEMENTIA IN OTH DISEASES CLASSD ELSWHR W BEHAVIORAL DISTURB Assessment & Plan Estimated LOS: days patient continues confused and demented, but no behavior problems. For now continue treatment placement may be come problematic Justification for Cont. Inpt. At this time patient decompensate and placed a lower level of care Discharge Planning Placement is problematic Request HC Surrog/Guard Advoc?: Yes Travis Brannon MD Mar 03, 2017 14:48
[2017-03-03] MEDS: REMOVE OLD NICODERM (NICOTINE) PATCH T-DERMAL SCH (21:00)
[2017-03-03 21:10] VITALS: BP 112/58; PULSE 88; RESP 18; TEMP 97.7; O2SAT 98
[2017-03-03] MEDS: diphenhydrAMINE HCL 50 MG CAP PO PRN (21:57)
[2017-03-03] MEDS: hydrOXYzine HCL 50 MG TAB PO PRN (21:57)
[2017-03-03] MEDS: LORazepam 0.5 MG TAB PO PRN (23:58)
[2017-03-04 06:19] VITALS: BP 118/68; PULSE 69; RESP 18; TEMP 98.6; O2SAT 97
[2017-03-04] MEDS: NICOTINE 21 MG/24 HR PATCH T-DERMAL SCH (08:26)
[2017-03-04] MEDS: COLLAGENASE OINT 30 GM TUBE TOPICAL SCH (09:00)
[2017-03-04] MEDS: ACETAMINOPHEN 325 MG TAB PO PRN (13:19)
--- NOTE | 2017-03-04 13:45 | HHI.PYPN ---
Subjective Chief Complaint: confused living and squalor Remarks Pt seen and discussed with staff. He was hostile this morning to staff accusing them of taking his "personal tv" and withholding meals. He has been taking medications without complaints and denies side effects. Memory is very poor. Mental Status Examination Appearance: Disheveled Consciousness: Alert Orientation: Person, Place (hospital) Motor Activity: Abnormal gait (use his walker) Speech: Unremarkable Language: Adequate Fund of Knowledge: Adequate Attention and Concentration: Easily Distracted Memory: Impaired Mood: Irritable Affect: Other (slight increase range and intensity) Thought Process & Associations: Disorganized Thought Content: Other (disorganized) Hallucination Type: None (denies) Delusion Type: None Suicidal Ideation: No Suicidal Plan: No Suicidal Intention: No Homicidal Ideation: No Homicidal Plan: No Homicidal Intention: No Insight: Poor Judgment: Poor Results Vitals/IOs Vital Signs Date Time Temp Pulse Resp B/P (MAP) Pulse Ox O2 Delivery O2 Flow Rate FiO2 03/04/17 06:19 98.6 69 18 118/68 (85) 97 Intake and Output 03/04/17 03/04/17 03/05/17 08:00 16:00 00:00 Intake Total 610 ml 600 ml Balance 610 ml 600 ml Assessment & Plan Problem List: (1) ALZHEIMER'S DISEASE WITH EARLY ONSET ICD Codes: G30.0 - ALZHEIMER'S DISEASE WITH EARLY ONSET (2) DEMENTIA IN OTH DISEASES CLASSD ELSWHR W BEHAVIORAL DISTURB ICD Codes: F02.81 - DEMENTIA IN OTH DISEASES CLASSD ELSWHR W BEHAVIORAL DISTURB Assessment & Plan Continue current tx plan. Estimated LOS: days Justification for Cont. Inpt. risk of decompensation Request HC Surrog/Guard Advoc?: Yes Areli Martinez MD Mar 04, 2017 13:45
[2017-03-04 18:00] VITALS: BP 114/74; PULSE 97; RESP 20; TEMP 98; O2SAT 100
[2017-03-04] MEDS: hydrOXYzine HCL 50 MG TAB PO PRN (20:25)
[2017-03-04] MEDS: REMOVE OLD NICODERM (NICOTINE) PATCH T-DERMAL SCH (20:26)
[2017-03-05 06:26] VITALS: BP 120/66; PULSE 90; RESP 18; TEMP 98.3; O2SAT 99
[2017-03-05] MEDS: COLLAGENASE OINT 30 GM TUBE TOPICAL SCH (09:00)
[2017-03-05] MEDS: NICOTINE 21 MG/24 HR PATCH T-DERMAL SCH (09:44)
--- NOTE | 2017-03-05 12:20 | HHI.PYPN ---
Subjective Chief Complaint: confused living and squalor Remarks Pt seen and discussed with staff. He has been cooperative and compliant. He remains confused with very poor short term memory but has been less irritable today. No aggression or agitation. No SI/HI Mental Status Examination Appearance: Disheveled Consciousness: Alert Orientation: Person, Place (hospital) Motor Activity: Abnormal gait (use his walker) Speech: Unremarkable Language: Adequate Fund of Knowledge: Adequate Attention and Concentration: Easily Distracted Memory: Impaired Mood: Irritable Affect: Other (slight increase range and intensity) Thought Process & Associations: Disorganized Thought Content: Other (disorganized) Hallucination Type: None (denies) Delusion Type: None Suicidal Ideation: No Suicidal Plan: No Suicidal Intention: No Homicidal Ideation: No Homicidal Plan: No Homicidal Intention: No Insight: Poor Judgment: Poor Results Vitals/IOs Vital Signs Date Time Temp Pulse Resp B/P (MAP) Pulse Ox O2 Delivery O2 Flow Rate FiO2 03/05/17 06:26 98.3 90 18 120/66 (84) 99 Intake and Output 03/05/17 03/05/17 03/06/17 08:00 16:00 00:00 Intake Total 360 ml Balance 360 ml Assessment & Plan Problem List: (1) ALZHEIMER'S DISEASE WITH EARLY ONSET ICD Codes: G30.0 - ALZHEIMER'S DISEASE WITH EARLY ONSET (2) DEMENTIA IN OTH DISEASES CLASSD ELSWHR W BEHAVIORAL DISTURB ICD Codes: F02.81 - DEMENTIA IN OTH DISEASES CLASSD ELSWHR W BEHAVIORAL DISTURB Assessment & Plan Continue current tx plan,. Estimated LOS: days Justification for Cont. Inpt. risk of decompensation Request HC Surrog/Guard Advoc?: Yes Areli Martinez MD Mar 05, 2017 12:20
[2017-03-05 18:00] VITALS: BP 107/56; PULSE 80; RESP 18; TEMP 98.2; O2SAT 100
[2017-03-05] MEDS: REMOVE OLD NICODERM (NICOTINE) PATCH T-DERMAL SCH (20:20)
[2017-03-05] MEDS: ACETAMINOPHEN 325 MG TAB PO PRN (20:44)
[2017-03-05] MEDS: diphenhydrAMINE HCL 50 MG CAP PO PRN (20:44)
[2017-03-06 05:52] VITALS: BP 97/53; PULSE 82; RESP 16; TEMP 98.3; O2SAT 96
[2017-03-06] MEDS: COLLAGENASE OINT 30 GM TUBE TOPICAL SCH (08:23)
[2017-03-06] MEDS: NICOTINE 21 MG/24 HR PATCH T-DERMAL SCH (08:23)
[2017-03-06] MEDS: ACETAMINOPHEN 325 MG TAB PO PRN ×2 (08:26→20:30)
--- NOTE | 2017-03-06 16:34 | HHI.PYPN ---
Subjective Chief Complaint: confused living and squalor Remarks Patient seen in day room with nurse Manolo, chart review, patient compliant medications. Patient alert calm though diffusely confused. Continues to show no insight like him return to his home though discussed it again today in some detail. Review of Systems Except as stated in HPI: all other systems reviewed are Neg Mental Status Examination Appearance: Disheveled Consciousness: Alert Orientation: Person, Place (hospital) Motor Activity: Abnormal gait (use his walker) Speech: Unremarkable Language: Adequate Fund of Knowledge: Adequate Attention and Concentration: Easily Distracted Memory: Impaired Mood: Irritable Affect: Other (slight increase range and intensity) Thought Process & Associations: Disorganized Thought Content: Other (disorganized) Hallucination Type: None (denies) Delusion Type: None Suicidal Ideation: No Suicidal Plan: No Suicidal Intention: No Homicidal Ideation: No Homicidal Plan: No Homicidal Intention: No Insight: Poor Judgment: Poor Results Vitals/IOs Vital Signs Date Time Temp Pulse Resp B/P (MAP) Pulse Ox O2 Delivery O2 Flow Rate FiO2 03/06/17 05:52 98.3 82 16 97/53 (68) 96 Intake and Output 03/06/17 03/06/17 03/07/17 08:00 16:00 00:00 Intake Total 240 ml 600 ml Balance 240 ml 600 ml Assessment & Plan Problem List: (1) ALZHEIMER'S DISEASE WITH EARLY ONSET ICD Codes: G30.0 - ALZHEIMER'S DISEASE WITH EARLY ONSET (2) DEMENTIA IN OTH DISEASES CLASSD ELSWHR W BEHAVIORAL DISTURB ICD Codes: F02.81 - DEMENTIA IN OTH DISEASES CLASSD ELSWHR W BEHAVIORAL DISTURB Assessment & Plan Estimated LOS: days patient continues confused and demented, though no significant behavior problems. Still showing no insight. For now continue treatment Justification for Cont. Inpt. At this time patient decompensated placed in a lower level of care Discharge Planning Placement remains problematic Request HC Surrog/Guard Advoc?: Yes Travis Brannon MD Mar 06, 2017 16:34
[2017-03-06 18:00] VITALS: BP 109/61; PULSE 84; RESP 18; TEMP 97.6; O2SAT 99
[2017-03-06] MEDS: diphenhydrAMINE HCL 50 MG CAP PO PRN (20:30)
[2017-03-06] MEDS: REMOVE OLD NICODERM (NICOTINE) PATCH T-DERMAL SCH (21:00)
[2017-03-07] MEDS: hydrOXYzine HCL 50 MG TAB PO PRN ×2 (00:08→22:37)
[2017-03-07 06:00] VITALS: BP 135/78; PULSE 98; RESP 17; TEMP 98.7; O2SAT 98
[2017-03-07 06:29] VITALS: BP 135/78; PULSE 98; RESP 17; TEMP 98.7; O2SAT 98
[2017-03-07] MEDS: LORazepam 0.5 MG TAB PO PRN (08:44)
[2017-03-07] MEDS: COLLAGENASE OINT 30 GM TUBE TOPICAL SCH (09:00)
[2017-03-07] MEDS: NICOTINE 21 MG/24 HR PATCH T-DERMAL SCH (09:00)
--- NOTE | 2017-03-07 09:38 | PD.TTN ---
Patient Problems 1. Discharge planning 2. Medication compliance 3. Knowledge deficit 4. Lack of coping skills Progress Toward Goals Provider Present: Dr. Scott Brannon Provider Input: 03/01 patient is very confused 03/06 very confused and in need of placement, incompetent to make good decisions Psychiatric Counselors Present: Antoinette Barbour LCSW Psych Therapist Input: 03/01 patient is in need of a placement but will need help from [facility] and more insurance coverage/assistance, his house is reporeted condemned 03/06 awaiting hear back from [facility] today, he is pending insurance and counselors are working on placement Group Spec/RT/OT/TOURE Present: Narinder Bueno OT Group Spec/RT/OT/TOURE Input: 03/01 does not attend any groups at this time 03/06 does not attend groups Antoinette Barbour LCSW Mar 07, 2017 09:38
--- NOTE | 2017-03-07 14:50 | HHI.PYPN ---
Subjective Chief Complaint: confused living and squalor Remarks Patient seen in dayroom with fluoroscopic staff, chart review, patient compliant medications. Patient continues diffusely confused, no significant behavioral problems. Continues with very little insight into placement issues Review of Systems Except as stated in HPI: all other systems reviewed are Neg Mental Status Examination Appearance: Disheveled Consciousness: Alert Orientation: Person, Place (hospital) Motor Activity: Abnormal gait (use his walker) Speech: Unremarkable Language: Adequate Fund of Knowledge: Adequate Attention and Concentration: Easily Distracted Memory: Impaired Mood: Irritable Affect: Other (slight increase range and intensity) Thought Process & Associations: Disorganized Thought Content: Other (disorganized) Hallucination Type: None (denies) Delusion Type: None Suicidal Ideation: No Suicidal Plan: No Suicidal Intention: No Homicidal Ideation: No Homicidal Plan: No Homicidal Intention: No Insight: Poor Judgment: Poor Results Vitals/IOs Vital Signs Date Time Temp Pulse Resp B/P (MAP) Pulse Ox O2 Delivery O2 Flow Rate FiO2 03/07/17 06:29 98.7 98 17 135/78 (97) 98 Intake and Output 03/07/17 03/07/17 03/08/17 08:00 16:00 00:00 Intake Total 240 ml Balance 240 ml Assessment & Plan Problem List: (1) ALZHEIMER'S DISEASE WITH EARLY ONSET ICD Codes: G30.0 - ALZHEIMER'S DISEASE WITH EARLY ONSET (2) DEMENTIA IN OTH DISEASES CLASSD ELSWHR W BEHAVIORAL DISTURB ICD Codes: F02.81 - DEMENTIA IN OTH DISEASES CLASSD ELSWHR W BEHAVIORAL DISTURB Assessment & Plan Estimated LOS: days patient continues confused demented, though no significant behavioral problems. Justification for Cont. Inpt. This time patient would decompensate if placed in a lower level of care Discharge Planning Placement may become problematic Request HC Surrog/Guard Advoc?: Yes Travis Brannon MD Mar 07, 2017 14:50
[2017-03-07 18:28] VITALS: BP 115/68; PULSE 88; RESP 14; TEMP 98.5
[2017-03-07] MEDS: ACETAMINOPHEN 325 MG TAB PO PRN (20:48)
[2017-03-07] MEDS: REMOVE OLD NICODERM (NICOTINE) PATCH T-DERMAL SCH (21:00)
[2017-03-08] MEDS: ACETAMINOPHEN 325 MG TAB PO PRN (09:16)
[2017-03-08] MEDS: COLLAGENASE OINT 30 GM TUBE TOPICAL SCH (09:17)
[2017-03-08] MEDS: NICOTINE 21 MG/24 HR PATCH T-DERMAL SCH (09:17)
--- NOTE | 2017-03-08 13:27 | HHI.PYPN ---
Subjective Chief Complaint: confused living and squalor Remarks Patient seen in day room with floor staff, chart review, patient compliant medication patient calm pleasant, continues pleasantly confused. Still no insight into the severity of his living situation. Review of Systems Except as stated in HPI: all other systems reviewed are Neg Mental Status Examination Appearance: Disheveled Consciousness: Alert Orientation: Person, Place (hospital) Motor Activity: Abnormal gait (use his walker) Speech: Unremarkable Language: Adequate Fund of Knowledge: Adequate Attention and Concentration: Easily Distracted Memory: Impaired Mood: Irritable Affect: Other (slight increase range and intensity) Thought Process & Associations: Disorganized Thought Content: Other (disorganized) Hallucination Type: None (denies) Delusion Type: None Suicidal Ideation: No Suicidal Plan: No Suicidal Intention: No Homicidal Ideation: No Homicidal Plan: No Homicidal Intention: No Insight: Poor Judgment: Poor Results Vitals/IOs Vital Signs Date Time Temp Pulse Resp B/P (MAP) Pulse Ox O2 Delivery O2 Flow Rate FiO2 03/07/17 22:55 20 03/07/17 18:28 98.5 88 115/68 (84) 03/07/17 06:29 98 Intake and Output 03/08/17 03/08/17 03/09/17 08:00 16:00 00:00 Intake Total 480 ml Balance 480 ml Assessment & Plan Problem List: (1) ALZHEIMER'S DISEASE WITH EARLY ONSET ICD Codes: G30.0 - ALZHEIMER'S DISEASE WITH EARLY ONSET (2) DEMENTIA IN OTH DISEASES CLASSD ELSWHR W BEHAVIORAL DISTURB ICD Codes: F02.81 - DEMENTIA IN OTH DISEASES CLASSD ELSWHR W BEHAVIORAL DISTURB Assessment & Plan Estimated LOS: days patient continues confused and demented, though no behavioral problems. Placement remains problematic Justification for Cont. Inpt. This time patient will decompensate to place to the lower level of care Discharge Planning Placement remains problematic Request HC Surrog/Guard Advoc?: Yes Travis Brannon MD Mar 08, 2017 13:27
[2017-03-08 18:12] VITALS: BP 121/66; PULSE 93; RESP 18; TEMP 98.1; O2SAT 98
[2017-03-08] MEDS: REMOVE OLD NICODERM (NICOTINE) PATCH T-DERMAL SCH (20:38)
[2017-03-08] MEDS: diphenhydrAMINE HCL 50 MG CAP PO PRN (20:58)
[2017-03-08] MEDS: hydrOXYzine HCL 50 MG TAB PO PRN (22:14)
[2017-03-09 05:34] VITALS: BP 102/68; PULSE 95; RESP 17; TEMP 98.6; O2SAT 98
[2017-03-09] MEDS: COLLAGENASE OINT 30 GM TUBE TOPICAL SCH (09:00)
[2017-03-09] MEDS: NICOTINE 21 MG/24 HR PATCH T-DERMAL SCH (09:00)
[2017-03-09] MEDS: ACETAMINOPHEN 325 MG TAB PO PRN ×3 (09:28→23:41)
[2017-03-09] MEDS: LORazepam 0.5 MG TAB PO PRN (11:45)
--- NOTE | 2017-03-09 16:14 | HHI.PYPN ---
Subjective Chief Complaint: confused living and squalor Remarks Patient seen in day room with nurse Angelia, chart reviewed, patient compliant medications. Patient continues confused and demented, with little insight into his issues. For now continue treatment. Placement may become quite difficult Review of Systems Except as stated in HPI: all other systems reviewed are Neg Mental Status Examination Appearance: Disheveled Consciousness: Alert Orientation: Person, Place (hospital) Motor Activity: Abnormal gait (use his walker) Speech: Unremarkable Language: Adequate Fund of Knowledge: Adequate Attention and Concentration: Easily Distracted Memory: Impaired Mood: Irritable Affect: Other (slight increase range and intensity) Thought Process & Associations: Disorganized Thought Content: Other (disorganized) Hallucination Type: None (denies) Delusion Type: None Suicidal Ideation: No Suicidal Plan: No Suicidal Intention: No Homicidal Ideation: No Homicidal Plan: No Homicidal Intention: No Insight: Poor Judgment: Poor Results Vitals/IOs Vital Signs Date Time Temp Pulse Resp B/P (MAP) Pulse Ox O2 Delivery O2 Flow Rate FiO2 03/09/17 05:34 98.6 95 17 102/68 (79) 98 Intake and Output 03/09/17 03/09/17 03/10/17 08:00 16:00 00:00 Intake Total 120 ml 600 ml Balance 120 ml 600 ml Assessment & Plan Problem List: (1) ALZHEIMER'S DISEASE WITH EARLY ONSET ICD Codes: G30.0 - ALZHEIMER'S DISEASE WITH EARLY ONSET (2) DEMENTIA IN OTH DISEASES CLASSD ELSWHR W BEHAVIORAL DISTURB ICD Codes: F02.81 - DEMENTIA IN OTH DISEASES CLASSD ELSWHR W BEHAVIORAL DISTURB Assessment & Plan Estimated LOS: days patient remains confused and demented, but no significant behavior problems. Placement may become quite problematic Justification for Cont. Inpt. At this time patient decompensated placed a lower level of care Discharge Planning To be determined Request HC Surrog/Guard Advoc?: Yes Travis Brannon MD Mar 09, 2017 16:14
[2017-03-09 18:36] VITALS: BP 109/64; PULSE 98; RESP 18; TEMP 98.5; O2SAT 97
[2017-03-09] MEDS: REMOVE OLD NICODERM (NICOTINE) PATCH T-DERMAL SCH (20:19)
[2017-03-09] MEDS: diphenhydrAMINE HCL 50 MG CAP PO PRN (20:33)
[2017-03-09] MEDS: hydrOXYzine HCL 50 MG TAB PO PRN (20:33)
[2017-03-10] MEDS: ACETAMINOPHEN 325 MG TAB PO PRN ×2 (03:44→20:41)
[2017-03-10 06:02] VITALS: BP 109/59; PULSE 96; RESP 18; TEMP 97.2; O2SAT 98
[2017-03-10] MEDS: NICOTINE 21 MG/24 HR PATCH T-DERMAL SCH ×2 (08:25→09:00)
[2017-03-10] MEDS: COLLAGENASE OINT 30 GM TUBE TOPICAL SCH ×2 (08:25→09:00)
--- NOTE | 2017-03-10 12:53 | HHI.PYPN ---
Subjective Chief Complaint: confused living and squalor Remarks Patient seen in day room with nurse Anderson, chart review, patient compliant medications. Patient continues diffusely confused and disoriented. At this time he is no behavioral problem. Placement remains quite problematic Review of Systems Except as stated in HPI: all other systems reviewed are Neg Mental Status Examination Appearance: Disheveled Consciousness: Alert Orientation: Person, Place (hospital) Motor Activity: Abnormal gait (use his walker) Speech: Unremarkable Language: Adequate Fund of Knowledge: Adequate Attention and Concentration: Easily Distracted Memory: Impaired Mood: Irritable Affect: Other (slight increase range and intensity) Thought Process & Associations: Disorganized Thought Content: Other (disorganized) Hallucination Type: None (denies) Delusion Type: None Suicidal Ideation: No Suicidal Plan: No Suicidal Intention: No Homicidal Ideation: No Homicidal Plan: No Homicidal Intention: No Insight: Poor Judgment: Poor Results Vitals/IOs Vital Signs Date Time Temp Pulse Resp B/P (MAP) Pulse Ox O2 Delivery O2 Flow Rate FiO2 03/10/17 06:02 97.2 96 18 109/59 (76) 98 Intake and Output 03/10/17 03/10/17 03/11/17 08:00 16:00 00:00 Intake Total 120 ml 360 ml Balance 120 ml 360 ml Assessment & Plan Problem List: (1) ALZHEIMER'S DISEASE WITH EARLY ONSET ICD Codes: G30.0 - ALZHEIMER'S DISEASE WITH EARLY ONSET (2) DEMENTIA IN OTH DISEASES CLASSD ELSWHR W BEHAVIORAL DISTURB ICD Codes: F02.81 - DEMENTIA IN OTH DISEASES CLASSD ELSWHR W BEHAVIORAL DISTURB Assessment & Plan Estimated LOS: days patient continues demented and confused, no significant behavior problems at this time Justification for Cont. Inpt. At this time patient will decompensate if placed in a lower level of care Discharge Planning Placement remains problematic Request HC Surrog/Guard Advoc?: Yes Travis Brannon MD Mar 10, 2017 12:53
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
[2017-03-10 18:00] VITALS: BP 129/59; PULSE 93; RESP 17; TEMP 97.6; O2SAT 98
[2017-03-10] MEDS: diphenhydrAMINE HCL 50 MG CAP PO PRN (20:41)
[2017-03-10] MEDS: LORazepam 0.5 MG TAB PO PRN (20:41)
[2017-03-10] MEDS: REMOVE OLD NICODERM (NICOTINE) PATCH T-DERMAL SCH (20:42)
[2017-03-11 06:00] VITALS: BP 109/61; PULSE 67; RESP 18; TEMP 98.2; O2SAT 95
[2017-03-11 06:32] VITALS: BP 97/54; PULSE 85; RESP 16; TEMP 98.6; O2SAT 98
[2017-03-11] MEDS: COLLAGENASE OINT 30 GM TUBE TOPICAL SCH (08:45)
[2017-03-11] MEDS: NICOTINE 21 MG/24 HR PATCH T-DERMAL SCH (08:45)
[2017-03-11 17:00] VITALS: BP 117/66; PULSE 88; RESP 16; TEMP 98.6; O2SAT 98
--- NOTE | 2017-03-11 18:18 | HHI.PYPN ---
Subjective Chief Complaint: confused living and squalor Remarks Patient was seen and case discussed with nursing. Patient is apathetic and rather unengaged during the interview. Per nursing he is improved and oppositional throughout the day. He denies psychotic symptoms but is likely responding to internal stimuli. Complaining of poor sleep Mental Status Examination Appearance: Disheveled Consciousness: Alert Orientation: Person, Place (hospital) Motor Activity: Abnormal gait (use his walker) Speech: Unremarkable Language: Adequate Fund of Knowledge: Adequate Attention and Concentration: Easily Distracted Memory: Impaired Mood: Irritable Affect: Other (slight increase range and intensity) Thought Process & Associations: Disorganized Thought Content: Other (disorganized) Hallucination Type: None (denies) Delusion Type: None Suicidal Ideation: No Suicidal Plan: No Suicidal Intention: No Homicidal Ideation: No Homicidal Plan: No Homicidal Intention: No Insight: Poor Judgment: Poor Results Vitals/IOs Vital Signs Date Time Temp Pulse Resp B/P (MAP) Pulse Ox O2 Delivery O2 Flow Rate FiO2 03/11/17 17:00 98.6 88 16 117/66 (83) 98 Intake and Output 03/11/17 03/11/17 03/12/17 08:00 16:00 00:00 Intake Total 360 ml 240 ml 240 ml Balance 360 ml 240 ml 240 ml Assessment & Plan Problem List: (1) ALZHEIMER'S DISEASE WITH EARLY ONSET ICD Codes: G30.0 - ALZHEIMER'S DISEASE WITH EARLY ONSET (2) DEMENTIA IN OTH DISEASES CLASSD ELSWHR W BEHAVIORAL DISTURB ICD Codes: F02.81 - DEMENTIA IN OTH DISEASES CLASSD ELSWHR W BEHAVIORAL DISTURB Assessment & Plan Continue current treatment plan Justification for Cont. Inpt. Patient would decompensate in a less restrictive setting Request HC Surrog/Guard Advoc?: Yes Ruddy Centeno DO Mar 11, 2017 18:17
[2017-03-11] MEDS: hydrOXYzine HCL 50 MG TAB PO PRN (20:30)
[2017-03-11] MEDS: diphenhydrAMINE HCL 50 MG CAP PO PRN (20:30)
[2017-03-11] MEDS: REMOVE OLD NICODERM (NICOTINE) PATCH T-DERMAL SCH (21:00)
[2017-03-12] MEDS: hydrOXYzine HCL 50 MG TAB PO PRN (08:37)
[2017-03-12] MEDS: LORazepam 0.5 MG TAB PO PRN (08:37)
[2017-03-12] MEDS: NICOTINE 21 MG/24 HR PATCH T-DERMAL SCH (09:00)
[2017-03-12] MEDS: COLLAGENASE OINT 30 GM TUBE TOPICAL SCH (09:00)
--- NOTE | 2017-03-12 16:15 | HHI.PYPN ---
Subjective Chief Complaint: confused living and squalor Remarks Patient was seen and case discussed with nursing. Patient is markedly more psychotic today. He remains perseverant lost teeth he does not have. He then says that he is had to be took the TV away in his room. He was reminded there never was a TV. He then claims that he hasn't eaten anything today. Mood is elevated and quite angry. Compliant with medications Mental Status Examination Appearance: Disheveled Consciousness: Alert Orientation: Person, Place (hospital) Motor Activity: Abnormal gait (use his walker) Speech: Unremarkable Language: Adequate Fund of Knowledge: Adequate Attention and Concentration: Easily Distracted Memory: Impaired Mood: Angry, Irritable Affect: Irritable, Other (angry) Thought Process & Associations: Disorganized Thought Content: Other (disorganized) Hallucination Type: None (denies) Delusion Type: None Suicidal Ideation: No Suicidal Plan: No Suicidal Intention: No Homicidal Ideation: No Homicidal Plan: No Homicidal Intention: No Insight: Poor Judgment: Poor Results Vitals/IOs Vital Signs Date Time Temp Pulse Resp B/P (MAP) Pulse Ox O2 Delivery O2 Flow Rate FiO2 03/11/17 17:00 98.6 88 16 117/66 (83) 98 Assessment & Plan Problem List: (1) ALZHEIMER'S DISEASE WITH EARLY ONSET ICD Codes: G30.0 - ALZHEIMER'S DISEASE WITH EARLY ONSET (2) DEMENTIA IN OTH DISEASES CLASSD ELSWHR W BEHAVIORAL DISTURB ICD Codes: F02.81 - DEMENTIA IN OTH DISEASES CLASSD ELSWHR W BEHAVIORAL DISTURB Assessment & Plan Continue current treatment plan Justification for Cont. Inpt. Patient will decompensate in a less restrictive setting Request HC Surrog/Guard Advoc?: Yes Ruddy Centeno DO Mar 12, 2017 16:15
[2017-03-12 18:37] VITALS: BP 112/57; PULSE 86; RESP 18; TEMP 98.6; O2SAT 99
[2017-03-12] MEDS: REMOVE OLD NICODERM (NICOTINE) PATCH T-DERMAL SCH (21:00)
[2017-03-12] MEDS: diphenhydrAMINE HCL 50 MG CAP PO PRN (21:11)
[2017-03-12] MEDS: ACETAMINOPHEN 325 MG TAB PO PRN (21:15)
[2017-03-13] MEDS: hydrOXYzine HCL 50 MG TAB PO PRN (01:12)
[2017-03-13] MEDS: ACETAMINOPHEN 325 MG TAB PO PRN ×2 (01:15→21:33)
[2017-03-13] MEDS: COLLAGENASE OINT 30 GM TUBE TOPICAL SCH (09:00)
[2017-03-13] MEDS: NICOTINE 21 MG/24 HR PATCH T-DERMAL SCH (09:00)
--- NOTE | 2017-03-13 16:01 | HHI.PYPN ---
Subjective Chief Complaint: confused living and squalor Remarks Patient seen in day room with medical student Brett nurse practitioner Jessica and nurse Howard. Chart reviewed. Patient compliant medication. Continues diffusely confused disoriented. Also continues somewhat irritable when discussing placement. Awaiting on DCF for further information concerning placement Review of Systems Except as stated in HPI: all other systems reviewed are Neg Mental Status Examination Appearance: Disheveled Consciousness: Alert Orientation: Person, Place (hospital) Motor Activity: Abnormal gait (use his walker) Speech: Unremarkable Language: Adequate Fund of Knowledge: Adequate Attention and Concentration: Easily Distracted Memory: Impaired Mood: Angry, Irritable Affect: Irritable, Other (angry) Thought Process & Associations: Disorganized Thought Content: Other (disorganized) Hallucination Type: None (denies) Delusion Type: None Suicidal Ideation: No Suicidal Plan: No Suicidal Intention: No Homicidal Ideation: No Homicidal Plan: No Homicidal Intention: No Insight: Poor Judgment: Poor Results Vitals/IOs Vital Signs Date Time Temp Pulse Resp B/P (MAP) Pulse Ox O2 Delivery O2 Flow Rate FiO2 03/12/17 18:37 98.6 86 18 112/57 (75) 99 Intake and Output 03/13/17 03/13/17 03/14/17 08:00 16:00 00:00 Intake Total 1080 ml Balance 1080 ml Assessment & Plan Problem List: (1) ALZHEIMER'S DISEASE WITH EARLY ONSET ICD Codes: G30.0 - ALZHEIMER'S DISEASE WITH EARLY ONSET (2) DEMENTIA IN OTH DISEASES CLASSD ELSWHR W BEHAVIORAL DISTURB ICD Codes: F02.81 - DEMENTIA IN OTH DISEASES CLASSD ELSWHR W BEHAVIORAL DISTURB Assessment & Plan Estimated LOS: days patient continues confused and demented, but also the degree of irritability. For now continue treatment Justification for Cont. Inpt. At this time patient decompensated place a lower level of care Discharge Planning Placement may become problematic Request HC Surrog/Guard Advoc?: Yes Travis Brannon MD Mar 13, 2017 16:01
[2017-03-13 18:11] VITALS: BP 139/67; PULSE 78; RESP 16; TEMP 98.3; O2SAT 98
[2017-03-13] MEDS: REMOVE OLD NICODERM (NICOTINE) PATCH T-DERMAL SCH (21:00)
[2017-03-13] MEDS: diphenhydrAMINE HCL 50 MG CAP PO PRN (21:00)
[2017-03-14] MEDS: LORazepam 0.5 MG TAB PO PRN ×2 (00:28→08:50)
[2017-03-14 05:50] VITALS: BP 121/58; PULSE 90; RESP 18; TEMP 98; O2SAT 100
[2017-03-14] MEDS: ACETAMINOPHEN 325 MG TAB PO PRN ×3 (05:57→21:01)
[2017-03-14] MEDS: NICOTINE 21 MG/24 HR PATCH T-DERMAL SCH (08:50)
[2017-03-14] MEDS: COLLAGENASE OINT 30 GM TUBE TOPICAL SCH (08:51)
[2017-03-14] MEDS ORDERED: HALOPERIDOL LACTATE 5 MG/ML AMP IM STA (11:08)
[2017-03-14] MEDS ORDERED: LORazepam 2 MG/ML VIAL IM STA (11:08)
[2017-03-14] MEDS ORDERED: diphenhydrAMINE HCL 50 MG/ML VIAL IM STA (11:08)
[2017-03-14] MEDS ORDERED: diphenhydrAMINE HCL 50 MG/ML VIAL ONE (11:30)
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
[2017-03-14] MEDS: QUEtiapine FUMARATE 25 MG TAB PO SCH (16:27)
[2017-03-14 18:48] VITALS: BP 103/57; PULSE 93; RESP 16; TEMP 99; O2SAT 99
[2017-03-14] MEDS: diphenhydrAMINE HCL 50 MG CAP PO PRN (20:59)
[2017-03-14] MEDS ORDERED: QUEtiapine FUMARATE 100 MG TAB PO SCH (21:00)
[2017-03-14] MEDS: REMOVE OLD NICODERM (NICOTINE) PATCH T-DERMAL SCH (21:00)
[2017-03-15] MEDS: LORazepam 0.5 MG TAB PO PRN (02:05)
[2017-03-15] MEDS: ACETAMINOPHEN 325 MG TAB PO PRN ×3 (02:06→12:09)
[2017-03-15 06:19] VITALS: BP 105/51; PULSE 74; RESP 16; TEMP 98.1; O2SAT 100
[2017-03-15] MEDS: QUEtiapine FUMARATE 25 MG TAB PO SCH ×3 (08:17→16:11)
[2017-03-15] MEDS: NICOTINE 21 MG/24 HR PATCH T-DERMAL SCH (08:17)
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
--- NOTE | 2017-03-15 15:42 | HHI.PYPN ---
Subjective Chief Complaint: confused living and squalor Remarks Patient seen in his room with nurse practitioner Jessica, and nurse Nahomy, patient alert diffusely confused and irritable. At this time he is no longer grabbing at her disturbing the wound dressings on both his forearms. He has shown some increased irritability. We will increase patient's Seroquel. His at bedtime we will increase to 20 mg. His daytime scheduled will increase to 50 mg Review of Systems Except as stated in HPI: all other systems reviewed are Neg Mental Status Examination Appearance: Disheveled Consciousness: Alert Orientation: Person, Place (hospital) Motor Activity: Abnormal gait (use his walker) Speech: Unremarkable Language: Adequate Fund of Knowledge: Adequate Attention and Concentration: Easily Distracted Memory: Impaired Mood: Angry, Irritable Affect: Irritable, Other (angry) Thought Process & Associations: Disorganized Thought Content: Other (disorganized) Hallucination Type: None (denies) Delusion Type: None Suicidal Ideation: No Suicidal Plan: No Suicidal Intention: No Homicidal Ideation: No Homicidal Plan: No Homicidal Intention: No Insight: Poor Judgment: Poor Results Vitals/IOs Vital Signs Date Time Temp Pulse Resp B/P (MAP) Pulse Ox O2 Delivery O2 Flow Rate FiO2 03/15/17 06:19 98.1 74 16 105/51 (69) 100 Intake and Output 03/15/17 03/15/17 03/16/17 08:00 16:00 00:00 Intake Total 960 ml Balance 960 ml Assessment & Plan Problem List: (1) ALZHEIMER'S DISEASE WITH EARLY ONSET ICD Codes: G30.0 - ALZHEIMER'S DISEASE WITH EARLY ONSET (2) DEMENTIA IN OTH DISEASES CLASSD ELSWHR W BEHAVIORAL DISTURB ICD Codes: F02.81 - DEMENTIA IN OTH DISEASES CLASSD ELSWHR W BEHAVIORAL DISTURB Assessment & Plan Estimated LOS: days patient continues confused disoriented and irritable though he is not disturbed is wound dressings at this time. She medication adjustment above Justification for Cont. Inpt. At this time patient decompensated placed in a lower level of care Discharge Planning Placement may remain problematic Request HC Surrog/Guard Advoc?: Yes Travis Brannon MD Mar 15, 2017 15:42
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
[2017-03-15] MEDS: IBUPROFEN 600 MG TAB PO PRN (20:23)
[2017-03-15] MEDS: diphenhydrAMINE HCL 50 MG CAP PO PRN (20:24)
[2017-03-15] MEDS: QUEtiapine FUMARATE 100 MG TAB PO SCH (20:24)
[2017-03-15] MEDS: REMOVE OLD NICODERM (NICOTINE) PATCH T-DERMAL SCH (21:00)
[2017-03-16 05:48] VITALS: BP 101/58; PULSE 75; RESP 18; TEMP 97.2; O2SAT 98
[2017-03-16] MEDS: QUEtiapine FUMARATE 25 MG TAB PO SCH ×3 (10:24→15:32)
[2017-03-16] MEDS: NICOTINE 21 MG/24 HR PATCH T-DERMAL SCH (10:24)
[2017-03-16] MEDS: IBUPROFEN 600 MG TAB PO PRN ×2 (11:18→21:59)
[2017-03-16] MEDS: LORazepam 0.5 MG TAB PO PRN (11:23)
--- NOTE | 2017-03-16 13:33 | HHI.PYPN ---
Subjective Chief Complaint: confused living and squalor Remarks Patient seen in his room, with medical student Brett and nurse Arturo chart review , patient compliant medication,, patient in bed he is alert diffusely confused and disoriented, though also irritable. As I was leaving the room he called me a 'f-ckin a--hole' patient's forearms continue dressed treating his skin tears. Is not bothering them at this time Review of Systems Except as stated in HPI: all other systems reviewed are Neg Mental Status Examination Appearance: Disheveled Consciousness: Alert Orientation: Person, Place (hospital) Motor Activity: Abnormal gait (use his walker) Speech: Unremarkable Language: Adequate Fund of Knowledge: Adequate Attention and Concentration: Easily Distracted Memory: Impaired Mood: Angry, Irritable Affect: Irritable, Other (angry) Thought Process & Associations: Disorganized Thought Content: Other (disorganized) Hallucination Type: None (denies) Delusion Type: None Suicidal Ideation: No Suicidal Plan: No Suicidal Intention: No Homicidal Ideation: No Homicidal Plan: No Homicidal Intention: No Insight: Poor Judgment: Poor Results Vitals/IOs Vital Signs Date Time Temp Pulse Resp B/P (MAP) Pulse Ox O2 Delivery O2 Flow Rate FiO2 03/16/17 05:48 97.2 75 18 101/58 (72) 98 Intake and Output 03/16/17 03/16/17 03/17/17 08:00 16:00 00:00 Intake Total 120 ml 480 ml Balance 120 ml 480 ml Assessment & Plan Problem List: (1) ALZHEIMER'S DISEASE WITH EARLY ONSET ICD Codes: G30.0 - ALZHEIMER'S DISEASE WITH EARLY ONSET (2) DEMENTIA IN OTH DISEASES CLASSD ELSWHR W BEHAVIORAL DISTURB ICD Codes: F02.81 - DEMENTIA IN OTH DISEASES CLASSD ELSWHR W BEHAVIORAL DISTURB Assessment & Plan Estimated LOS: days patient continues confused and demented, continues irritated and angry somewhat with me. Skin tears on both arms appeared to be better Justification for Cont. Inpt. At this time patient Sitting placed in a lower level of care Discharge Planning Placement still needs to be made Request HC Surrog/Guard Advoc?: Yes Travis Brannon MD Mar 16, 2017 13:33
[2017-03-16] MEDS: hydrOXYzine HCL 50 MG TAB PO PRN (15:32)
[2017-03-16 17:53] VITALS: BP 108/62; PULSE 92; RESP 18; TEMP 98; O2SAT 99
[2017-03-16] MEDS: REMOVE OLD NICODERM (NICOTINE) PATCH T-DERMAL SCH (21:00)
[2017-03-16] MEDS: diphenhydrAMINE HCL 50 MG CAP PO PRN (21:59)
[2017-03-16] MEDS: QUEtiapine FUMARATE 100 MG TAB PO SCH (22:00)
[2017-03-17 06:39] VITALS: BP 103/59; PULSE 87; RESP 17; TEMP 98.1; O2SAT 94
[2017-03-17] MEDS: QUEtiapine FUMARATE 25 MG TAB PO SCH ×3 (08:37→16:00)
[2017-03-17] MEDS: LORazepam 0.5 MG TAB PO PRN (08:38)
[2017-03-17] MEDS: NICOTINE 21 MG/24 HR PATCH T-DERMAL SCH (08:44)
--- NOTE | 2017-03-17 13:14 | HHI.PYPN ---
Subjective Chief Complaint: confused living and squalor Remarks Patient seen in his room with nurse Manolo and medical student Brett, chart review , patient compliant medications. Patient more alert today continues diffusely confused with no insight, continues to question why he cannot return to his home. It appears to maybe a place available early part of next week. I attempted to discuss this with patient showed no significant processing of that at this time Review of Systems Except as stated in HPI: all other systems reviewed are Neg Mental Status Examination Appearance: Disheveled Consciousness: Alert Orientation: Person, Place (hospital) Motor Activity: Abnormal gait (use his walker) Speech: Unremarkable Language: Adequate Fund of Knowledge: Adequate Attention and Concentration: Easily Distracted Memory: Impaired Mood: Angry, Irritable Affect: Irritable, Other (angry) Thought Process & Associations: Disorganized Thought Content: Other (disorganized) Hallucination Type: None (denies) Delusion Type: None Suicidal Ideation: No Suicidal Plan: No Suicidal Intention: No Homicidal Ideation: No Homicidal Plan: No Homicidal Intention: No Insight: Poor Judgment: Poor Results Vitals/IOs Vital Signs Date Time Temp Pulse Resp B/P (MAP) Pulse Ox O2 Delivery O2 Flow Rate FiO2 03/17/17 06:39 98.1 87 17 103/59 (74) 94 Intake and Output 03/17/17 03/17/17 03/18/17 08:00 16:00 00:00 Intake Total 120 ml 240 ml Balance 120 ml 240 ml Assessment & Plan Problem List: (1) ALZHEIMER'S DISEASE WITH EARLY ONSET ICD Codes: G30.0 - ALZHEIMER'S DISEASE WITH EARLY ONSET (2) DEMENTIA IN OTH DISEASES CLASSD ELSWHR W BEHAVIORAL DISTURB ICD Codes: F02.81 - DEMENTIA IN OTH DISEASES CLASSD ELSWHR W BEHAVIORAL DISTURB Assessment & Plan Estimated LOS: days patient continues confused and demented, with some continued irritability also. Patient compliant medication. For now continue treatment Justification for Cont. Inpt. At this time patient will decompensate of placed at a lower level of care Discharge Planning Placement may become problematic though appears a may be of placement available next week Request HC Surrog/Guard Advoc?: Yes Travis Brannon MD Mar 17, 2017 13:14
[2017-03-17 16:44] VITALS: BP 129/64; PULSE 114; RESP 17; TEMP 98.3; O2SAT 98
[2017-03-17] MEDS: diphenhydrAMINE HCL 50 MG CAP PO PRN (20:07)
[2017-03-17] MEDS: IBUPROFEN 600 MG TAB PO PRN (20:07)
[2017-03-17] MEDS: QUEtiapine FUMARATE 100 MG TAB PO SCH (20:07)
[2017-03-17] MEDS: REMOVE OLD NICODERM (NICOTINE) PATCH T-DERMAL SCH (21:00)
[2017-03-18 06:20] VITALS: BP 109/52; PULSE 82; RESP 17; TEMP 97.4
[2017-03-18] MEDS: QUEtiapine FUMARATE 25 MG TAB PO SCH ×3 (08:07→16:00)
[2017-03-18] MEDS: LORazepam 0.5 MG TAB PO PRN (08:07)
[2017-03-18] MEDS: NICOTINE 21 MG/24 HR PATCH T-DERMAL SCH (08:09)
[2017-03-18] MEDS: hydrOXYzine HCL 50 MG TAB PO PRN (12:00)
--- NOTE | 2017-03-18 14:19 | HHI.PYPN ---
Subjective Chief Complaint: confused living and squalor Remarks Pt seen and discussed with staff. He remains confused but has not been agitated. No behavioral problems on unit. He is compliant with treatment. No SI/ HI Mental Status Examination Appearance: Disheveled Consciousness: Alert Orientation: Person, Place (hospital) Motor Activity: Abnormal gait (use his walker) Speech: Unremarkable Language: Adequate Fund of Knowledge: Adequate Attention and Concentration: Easily Distracted Memory: Impaired Mood: Angry, Irritable Affect: Irritable, Other (angry) Thought Process & Associations: Disorganized Thought Content: Other (disorganized) Hallucination Type: None (denies) Delusion Type: None Suicidal Ideation: No Suicidal Plan: No Suicidal Intention: No Homicidal Ideation: No Homicidal Plan: No Homicidal Intention: No Insight: Poor Judgment: Poor Results Vitals/IOs Vital Signs Date Time Temp Pulse Resp B/P (MAP) Pulse Ox O2 Delivery O2 Flow Rate FiO2 03/18/17 06:20 97.4 82 17 109/52 (71) 03/17/17 16:44 98 Intake and Output 03/18/17 03/18/17 03/19/17 08:00 16:00 00:00 Intake Total 120 ml 240 ml Balance 120 ml 240 ml Assessment & Plan Problem List: (1) ALZHEIMER'S DISEASE WITH EARLY ONSET ICD Codes: G30.0 - ALZHEIMER'S DISEASE WITH EARLY ONSET (2) DEMENTIA IN OTH DISEASES CLASSD ELSWHR W BEHAVIORAL DISTURB ICD Codes: F02.81 - DEMENTIA IN OTH DISEASES CLASSD ELSWHR W BEHAVIORAL DISTURB Assessment & Plan Continue current tx plan. Estimated LOS: days Justification for Cont. Inpt. risk of decompensation Request HC Surrog/Guard Advoc?: Yes Areli Martinez MD Mar 18, 2017 14:19
[2017-03-18] MEDS: IBUPROFEN 600 MG TAB PO PRN ×2 (16:00→21:29)
[2017-03-18 18:23] VITALS: BP 93/51; PULSE 99; RESP 18; TEMP 97.8; O2SAT 99
[2017-03-18] MEDS: REMOVE OLD NICODERM (NICOTINE) PATCH T-DERMAL SCH (21:00)
[2017-03-18] MEDS: QUEtiapine FUMARATE 100 MG TAB PO SCH (21:28)
[2017-03-18] MEDS: diphenhydrAMINE HCL 50 MG CAP PO PRN (21:28)
[2017-03-19] MEDS: IBUPROFEN 600 MG TAB PO PRN ×2 (06:20→15:23)
[2017-03-19 06:29] VITALS: BP 93/60; PULSE 77; RESP 16; TEMP 98.4; O2SAT 100
[2017-03-19] MEDS: QUEtiapine FUMARATE 25 MG TAB PO SCH ×3 (08:00→15:23)
[2017-03-19] MEDS: hydrOXYzine HCL 50 MG TAB PO PRN ×3 (08:33→21:36)
[2017-03-19] MEDS: NICOTINE 21 MG/24 HR PATCH T-DERMAL SCH (09:00)
--- NOTE | 2017-03-19 14:50 | HHI.PYPN ---
Subjective Chief Complaint: confused living and squalor Remarks Pt seen and discussed with staff. He believes he was taken from [facility] to be placed [place] [facility] He is irritable and demands immediate discharge. He is cooperative with medications. No SI/HI Mental Status Examination Appearance: Disheveled Consciousness: Alert Orientation: Person, Place (hospital) Motor Activity: Abnormal gait (use his walker) Speech: Unremarkable Language: Adequate Fund of Knowledge: Adequate Attention and Concentration: Easily Distracted Memory: Impaired Mood: Angry, Irritable Affect: Irritable, Other (angry) Thought Process & Associations: Disorganized Thought Content: Other (disorganized) Hallucination Type: None (denies) Delusion Type: None Suicidal Ideation: No Suicidal Plan: No Suicidal Intention: No Homicidal Ideation: No Homicidal Plan: No Homicidal Intention: No Insight: Poor Judgment: Poor Results Vitals/IOs Vital Signs Date Time Temp Pulse Resp B/P (MAP) Pulse Ox O2 Delivery O2 Flow Rate FiO2 03/19/17 06:29 98.4 77 16 93/60 (71) 100 Intake and Output 03/19/17 03/19/17 03/20/17 08:00 16:00 00:00 Intake Total 0 ml Balance 0 ml Assessment & Plan Problem List: (1) ALZHEIMER'S DISEASE WITH EARLY ONSET ICD Codes: G30.0 - ALZHEIMER'S DISEASE WITH EARLY ONSET (2) DEMENTIA IN OTH DISEASES CLASSD ELSWHR W BEHAVIORAL DISTURB ICD Codes: F02.81 - DEMENTIA IN OTH DISEASES CLASSD ELSWHR W BEHAVIORAL DISTURB Assessment & Plan Continue current tx plan. Estimated LOS: days Justification for Cont. Inpt. risk of decompensation Request HC Surrog/Guard Advoc?: Yes Areli Martinez MD Mar 19, 2017 14:50
[2017-03-19 18:00] VITALS: BP 118/73; PULSE 93; RESP 18; TEMP 97.6; O2SAT 97
[2017-03-19] MEDS: REMOVE OLD NICODERM (NICOTINE) PATCH T-DERMAL SCH (21:00)
[2017-03-19] MEDS: QUEtiapine FUMARATE 100 MG TAB PO SCH (21:36)
[2017-03-20 05:48] VITALS: BP 85/54; PULSE 84; RESP 16; TEMP 98.4; O2SAT 99
[2017-03-20] MEDS: QUEtiapine FUMARATE 25 MG TAB PO SCH ×2 (08:00→11:28)
[2017-03-20] MEDS: NICOTINE 21 MG/24 HR PATCH T-DERMAL SCH (09:00)
[2017-03-20] MEDS: IBUPROFEN 600 MG TAB PO PRN (09:30)
--- NOTE | 2017-03-20 15:27 | HHI.PYPN ---
Subjective Chief Complaint: confused living and squalor Remarks Patient seen in his room with nurse Monica, patient calm but there is some underlying tension and irritability that he expresses through the day at times. He still shows no insight into the circumstances that led to this hospitalization. I will increase the daytime scheduled Seroquel to 100 mg 8 AM and 100 mg 2 PM. Continue at bedtime dose no change. Is becoming more problematic. He was declined by a local INTERMEDIATE today Review of Systems Except as stated in HPI: all other systems reviewed are Neg Mental Status Examination Appearance: Disheveled Consciousness: Alert Orientation: Person, Place (hospital) Motor Activity: Abnormal gait (use his walker) Speech: Unremarkable Language: Adequate Fund of Knowledge: Adequate Attention and Concentration: Easily Distracted Memory: Impaired Mood: Angry, Irritable Affect: Irritable, Other (angry) Thought Process & Associations: Disorganized Thought Content: Other (disorganized) Hallucination Type: None (denies) Delusion Type: None Suicidal Ideation: No Suicidal Plan: No Suicidal Intention: No Homicidal Ideation: No Homicidal Plan: No Homicidal Intention: No Insight: Poor Judgment: Poor Results Vitals/IOs Vital Signs Date Time Temp Pulse Resp B/P (MAP) Pulse Ox O2 Delivery O2 Flow Rate FiO2 03/20/17 05:48 98.4 84 16 85/54 (64) 99 Intake and Output 03/20/17 03/20/17 03/21/17 08:00 16:00 00:00 Intake Total 360 ml 360 ml Balance 360 ml 360 ml Assessment & Plan Problem List: (1) ALZHEIMER'S DISEASE WITH EARLY ONSET ICD Codes: G30.0 - ALZHEIMER'S DISEASE WITH EARLY ONSET (2) DEMENTIA IN OTH DISEASES CLASSD ELSWHR W BEHAVIORAL DISTURB ICD Codes: F02.81 - DEMENTIA IN OTH DISEASES CLASSD ELSWHR W BEHAVIORAL DISTURB Assessment & Plan Estimated LOS: days patient continues demented confused with a degree of irritability and anger and confusion. She medication adjustment above Justification for Cont. Inpt. At this time patient would decompensated placed in a lower level of care Discharge Planning Placement is becoming more problematic, he was declined by a local [facility] today Request HC Surrog/Guard Advoc?: Yes Travis Brannon MD Mar 20, 2017 15:27
[2017-03-20 18:24] VITALS: BP 112/65; PULSE 95; RESP 18; TEMP 98.3; O2SAT 99
[2017-03-20] MEDS: REMOVE OLD NICODERM (NICOTINE) PATCH T-DERMAL SCH (21:00)
[2017-03-20] MEDS: LORazepam 0.5 MG TAB PO PRN (21:45)
[2017-03-20] MEDS: QUEtiapine FUMARATE 100 MG TAB PO SCH (21:45)
[2017-03-21 06:20] VITALS: BP 91/55; PULSE 87; RESP 17; TEMP 97.6; O2SAT 99
[2017-03-21] MEDS: QUEtiapine FUMARATE 100 MG TAB PO SCH ×3 (08:00→21:21)
[2017-03-21] MEDS: NICOTINE 21 MG/24 HR PATCH T-DERMAL SCH (09:00)
[2017-03-21] MEDS: LORazepam 0.5 MG TAB PO PRN ×2 (09:27→21:21)
--- NOTE | 2017-03-21 13:51 | HHI.PYPN ---
Subjective Chief Complaint: confused living and squalor Remarks Patient seen in his room with nurse Monica, patient showed some lability and irritability earlier today slamming his walker down breaking the we'll off of it. When patient seen sitting on the edge of his bed he continues markedly confused disoriented with no insight into his disease and minimal short term recollection. He still wants to go home to his home in [place]. Unable to process the need for finding an appropriate facility locally. Patient compliant medications. Will consult PT to order a wheeled walker Review of Systems Except as stated in HPI: all other systems reviewed are Neg Mental Status Examination Appearance: Disheveled Consciousness: Alert Orientation: Person, Place (hospital) Motor Activity: Abnormal gait (use his walker) Speech: Unremarkable Language: Adequate Fund of Knowledge: Adequate Attention and Concentration: Easily Distracted Memory: Impaired Mood: Angry, Irritable Affect: Irritable, Other (angry) Thought Process & Associations: Disorganized Thought Content: Other (disorganized) Hallucination Type: None (denies) Delusion Type: None Suicidal Ideation: No Suicidal Plan: No Suicidal Intention: No Homicidal Ideation: No Homicidal Plan: No Homicidal Intention: No Insight: Poor Judgment: Poor Results Vitals/IOs Vital Signs Date Time Temp Pulse Resp B/P (MAP) Pulse Ox O2 Delivery O2 Flow Rate FiO2 03/21/17 06:20 97.6 87 17 91/55 (67) 99 Intake and Output 03/21/17 03/21/17 03/22/17 08:00 16:00 00:00 Intake Total 960 ml 360 ml Balance 960 ml 360 ml Assessment & Plan Problem List: (1) ALZHEIMER'S DISEASE WITH EARLY ONSET ICD Codes: G30.0 - ALZHEIMER'S DISEASE WITH EARLY ONSET (2) DEMENTIA IN OTH DISEASES CLASSD ELSWHR W BEHAVIORAL DISTURB ICD Codes: F02.81 - DEMENTIA IN OTH DISEASES CLASSD ELSWHR W BEHAVIORAL DISTURB Assessment & Plan Estimated LOS: days patient continues demented confused at times somewhat irritable showing no ability to process and no insight. Justification for Cont. Inpt. At this time patient decompensated placed a lower level of care Discharge Planning Placement may become quite problematic Request HC Surrog/Guard Advoc?: Yes Travis Brannon MD Mar 21, 2017 13:51
--- NOTE | 2017-03-21 16:29 | PD.TTN ---
Patient Problems 1. Discharge planning 2. Medication compliance 3. Knowledge deficit 4. Lack of coping skills Progress Toward Goals Provider Present: Dr. Scott Brannon Provider Input: 03/21/17 patient still in need for placement 03/15/17 still titrating medications since aggitation increased, severly confused and working towards medications adjustments to get him ready for placement 03/10/17 still very confused and in need for placement for safe discharge 03/01 patient is very confused 03/06 very confused and in need of placement, incompetent to make good decisions Psychiatric Counselors Present: Antoinette Barbour LCSW Psych Therapist Input: 03/21/17 working with DCF on placement due to patient's behavior cannot go to [facility], he is referred to [facility] and [facility] 03/15/17 [facility] accepted patient once medications are increased and he had days without any ETO, he remains very disoriented and in need for folder hand care 03/10/17 patient becomes easily aggitated and demanding wanting to be in his home in [place] or asking for his TV thinking we stole and he wants it in his room, he needs a placemetn which will be arranged with [facility] soon, he is Medicare pending and [facility] will need a letter from Social Security to accept him/[facility] will take him once Medicare is pending/ in writing with a date of when he will be eligible Awaiting for DCF to assist with it 03/01 patient is in need of a placement but will need help from DCF and more insurance coverage/assistance, his house is reporeted condemned 03/06 awaiting hear back from [facility] today, he is pending insurance and counselors are working on placement Group Spec/RT/OT/TOURE Present: TEJAL Singh Andrew Harrison, OT Group Spec/RT/OT/TOURE Input: 03/21/17 patient does not participate 03/15/17 hositle and refuses groups poor social skills and argumentative in the milieu , engages in groups when encouraged 03/01 does not attend any groups at this time 03/06 does not attend groups Antoinette Barbour LCSW Mar 21, 2017 16:29
[2017-03-21 17:31] VITALS: BP 120/68; PULSE 90; RESP 18; TEMP 98; O2SAT 99
[2017-03-21] MEDS: REMOVE OLD NICODERM (NICOTINE) PATCH T-DERMAL SCH (21:00)
[2017-03-22 05:49] VITALS: BP 112/57; PULSE 79; RESP 18; TEMP 97.7; O2SAT 98
[2017-03-22] MEDS: QUEtiapine FUMARATE 100 MG TAB PO SCH ×3 (07:46→20:59)
[2017-03-22] MEDS: NICOTINE 21 MG/24 HR PATCH T-DERMAL SCH (07:46)
[2017-03-22] MEDS: IBUPROFEN 600 MG TAB PO PRN (08:38)
--- NOTE | 2017-03-22 11:18 | HHI.PYPN ---
Subjective Chief Complaint: confused living and squalor Remarks Patient seen with nurse Carline, chart reviewed, patient compliant medication. Patient seen in his room continues in bed with covers to his chin. Though he is alert diffusely confused disoriented but no behavior problems. Patient did get up for breakfast 8 all of it. However at time of interview did not remember eating breakfast. We continue to work with him related to a more long- term placement. He is appears to show some interest in that now. For now continue treatment Review of Systems Except as stated in HPI: all other systems reviewed are Neg Mental Status Examination Appearance: Disheveled Consciousness: Alert Orientation: Person, Place (hospital) Motor Activity: Abnormal gait (use his walker) Speech: Unremarkable Language: Adequate Fund of Knowledge: Adequate Attention and Concentration: Easily Distracted Memory: Impaired Mood: Angry, Irritable Affect: Irritable, Other (angry) Thought Process & Associations: Disorganized Thought Content: Other (disorganized) Hallucination Type: None (denies) Delusion Type: None Suicidal Ideation: No Suicidal Plan: No Suicidal Intention: No Homicidal Ideation: No Homicidal Plan: No Homicidal Intention: No Insight: Poor Judgment: Poor Results Vitals/IOs Vital Signs Date Time Temp Pulse Resp B/P (MAP) Pulse Ox O2 Delivery O2 Flow Rate FiO2 03/22/17 05:49 97.7 79 18 112/57 (75) 98 Intake and Output 03/22/17 03/22/17 03/23/17 08:00 16:00 00:00 Intake Total 240 ml 120 ml Balance 240 ml 120 ml Assessment & Plan Problem List: (1) ALZHEIMER'S DISEASE WITH EARLY ONSET ICD Codes: G30.0 - ALZHEIMER'S DISEASE WITH EARLY ONSET (2) DEMENTIA IN OTH DISEASES CLASSD ELSWHR W BEHAVIORAL DISTURB ICD Codes: F02.81 - DEMENTIA IN OTH DISEASES CLASSD ELSWHR W BEHAVIORAL DISTURB Assessment & Plan Estimated LOS: days patient continues confused disoriented demented, though not quite as angry. For now continue treatment Justification for Cont. Inpt. At this time patient will decompensate if placed in the lower level of care Discharge Planning We're attempting to find an appropriate placement for this gentleman Request HC Surrog/Guard Advoc?: Yes Travis Brannon MD Mar 22, 2017 11:18
[2017-03-22 18:23] VITALS: BP 131/73; PULSE 95; RESP 18; TEMP 98.6; O2SAT 98
[2017-03-22] MEDS: hydrOXYzine HCL 50 MG TAB PO PRN (20:59)
[2017-03-22] MEDS: REMOVE OLD NICODERM (NICOTINE) PATCH T-DERMAL SCH (21:00)
[2017-03-23 05:43] VITALS: BP 114/64; PULSE 93; RESP 18; TEMP 97.7; O2SAT 97
[2017-03-23] MEDS: NICOTINE 21 MG/24 HR PATCH T-DERMAL SCH (08:36)
[2017-03-23] MEDS: QUEtiapine FUMARATE 100 MG TAB PO SCH ×3 (08:37→20:55)
--- NOTE | 2017-03-23 14:36 | HHI.PYPN ---
Subjective Chief Complaint: confused living and squalor Remarks Patient seen in dayroom with medical student Brett, chart review, discussed with nurse. Patient appears more willing to go to a placement upon discharge from here. It appears goal choice babyish of this gentleman. Remains diffusely confused with an underlying irritability Review of Systems Except as stated in HPI: all other systems reviewed are Neg Mental Status Examination Appearance: Disheveled Consciousness: Alert Orientation: Person, Place (hospital) Motor Activity: Abnormal gait (use his walker) Speech: Unremarkable Language: Adequate Fund of Knowledge: Adequate Attention and Concentration: Easily Distracted Memory: Impaired Mood: Angry, Irritable Affect: Irritable, Other (angry) Thought Process & Associations: Disorganized Thought Content: Other (disorganized) Hallucination Type: None (denies) Delusion Type: None Suicidal Ideation: No Suicidal Plan: No Suicidal Intention: No Homicidal Ideation: No Homicidal Plan: No Homicidal Intention: No Insight: Poor Judgment: Poor Results Vitals/IOs Vital Signs Date Time Temp Pulse Resp B/P (MAP) Pulse Ox O2 Delivery O2 Flow Rate FiO2 03/23/17 05:43 97.7 93 18 114/64 (81) 97 Assessment & Plan Problem List: (1) ALZHEIMER'S DISEASE WITH EARLY ONSET ICD Codes: G30.0 - ALZHEIMER'S DISEASE WITH EARLY ONSET (2) DEMENTIA IN OTH DISEASES CLASSD ELSWHR W BEHAVIORAL DISTURB ICD Codes: F02.81 - DEMENTIA IN OTH DISEASES CLASSD ELSWHR W BEHAVIORAL DISTURB Assessment & Plan Estimated LOS: days patient continues diffusely confused disoriented and demented, though the some less anger today the confusion persists with significant short term deficit. There may be a place available the next 1-2 days Justification for Cont. Inpt. At this time patient will decompensate if not placed in an appropriate level of care Discharge Planning Continue to await word from placement Request HC Surrog/Guard Advoc?: Yes Travis Brannon MD Mar 23, 2017 14:36
[2017-03-23 17:43] VITALS: BP 112/76; PULSE 88; RESP 18; TEMP 98.3; O2SAT 97
[2017-03-23] MEDS: diphenhydrAMINE HCL 50 MG CAP PO PRN (20:55)
[2017-03-23] MEDS: IBUPROFEN 600 MG TAB PO PRN (20:55)
[2017-03-23] MEDS: REMOVE OLD NICODERM (NICOTINE) PATCH T-DERMAL SCH (20:58)
[2017-03-24 06:14] VITALS: BP 92/56; PULSE 80; RESP 16; TEMP 97.4
[2017-03-24] MEDS: QUEtiapine FUMARATE 100 MG TAB PO SCH ×3 (08:02→20:53)
[2017-03-24] MEDS: NICOTINE 21 MG/24 HR PATCH T-DERMAL SCH (09:00)
[2017-03-24] MEDS: IBUPROFEN 600 MG TAB PO PRN ×2 (13:47→23:14)
--- NOTE | 2017-03-24 15:05 | HHI.PYPN ---
Subjective Chief Complaint: confused living and squalor Remarks Patient seen in day room with nurse Emma, chart review, patient discussed with nurse patient calm more pleasant today continues diffusely confused but his affect's office. For now continue treatment no change Review of Systems Except as stated in HPI: all other systems reviewed are Neg Mental Status Examination Appearance: Disheveled Consciousness: Alert Orientation: Person, Place (hospital) Motor Activity: Abnormal gait (use his walker) Speech: Unremarkable Language: Adequate Fund of Knowledge: Adequate Attention and Concentration: Easily Distracted Memory: Impaired Mood: Angry, Irritable Affect: Irritable, Other (angry) Thought Process & Associations: Disorganized Thought Content: Other (disorganized) Hallucination Type: None (denies) Delusion Type: None Suicidal Ideation: No Suicidal Plan: No Suicidal Intention: No Homicidal Ideation: No Homicidal Plan: No Homicidal Intention: No Insight: Poor Judgment: Poor Results Vitals/IOs Vital Signs Date Time Temp Pulse Resp B/P (MAP) Pulse Ox O2 Delivery O2 Flow Rate FiO2 03/24/17 06:14 97.4 80 16 92/56 (68) 03/23/17 17:43 97 Intake and Output 03/24/17 03/24/17 03/25/17 08:00 16:00 00:00 Intake Total 480 ml Balance 480 ml Assessment & Plan Problem List: (1) ALZHEIMER'S DISEASE WITH EARLY ONSET ICD Codes: G30.0 - ALZHEIMER'S DISEASE WITH EARLY ONSET (2) DEMENTIA IN OTH DISEASES CLASSD ELSWHR W BEHAVIORAL DISTURB ICD Codes: F02.81 - DEMENTIA IN OTH DISEASES CLASSD ELSWHR W BEHAVIORAL DISTURB Assessment & Plan Estimated LOS: days patient continues confused and demented, though his paranoia vigilance are somewhat softer today his confusion persists Justification for Cont. Inpt. At this time patient will decompensate if not place an appropriate level of care Discharge Planning Placement remains somewhat problematic Request HC Surrog/Guard Advoc?: Yes Travis Brannon MD Mar 24, 2017 15:05
[2017-03-24 16:20] VITALS: BP 103/65; PULSE 89; RESP 16; TEMP 98.1; O2SAT 99
[2017-03-24] MEDS: hydrOXYzine HCL 50 MG TAB PO PRN (20:53)
[2017-03-24] MEDS: REMOVE OLD NICODERM (NICOTINE) PATCH T-DERMAL SCH (20:57)
[2017-03-24] MEDS: diphenhydrAMINE HCL 50 MG CAP PO PRN (23:12)
[2017-03-25 06:04] VITALS: BP 112/60; PULSE 82; RESP 18; TEMP 99; O2SAT 97
[2017-03-25] MEDS: QUEtiapine FUMARATE 100 MG TAB PO SCH ×3 (08:00→20:30)
[2017-03-25] MEDS: NICOTINE 21 MG/24 HR PATCH T-DERMAL SCH (09:00)
--- NOTE | 2017-03-25 16:17 | HHI.PYPN ---
Subjective Chief Complaint: confused living and squalor Remarks Patient was seen and case discussed with nursing. Remains confused with poor short-term memory. He doesn't remember that he ate meals and feels that he slept for longer than he has. He is compliant with his medications and behaving well on the unit Mental Status Examination Appearance: Disheveled Consciousness: Alert Orientation: Person, Place (hospital) Motor Activity: Abnormal gait (use his walker) Speech: Unremarkable Language: Adequate Fund of Knowledge: Adequate Attention and Concentration: Easily Distracted Memory: Impaired Mood: Angry, Irritable Affect: Irritable, Other (angry) Thought Process & Associations: Disorganized Thought Content: Other (disorganized) Hallucination Type: None (denies) Delusion Type: None Suicidal Ideation: No Suicidal Plan: No Suicidal Intention: No Homicidal Ideation: No Homicidal Plan: No Homicidal Intention: No Insight: Poor Judgment: Poor Results Vitals/IOs Vital Signs Date Time Temp Pulse Resp B/P (MAP) Pulse Ox O2 Delivery O2 Flow Rate FiO2 03/25/17 06:04 99.0 82 18 112/60 (77) 97 Intake and Output 03/25/17 03/25/17 03/26/17 08:00 16:00 00:00 Intake Total 700 ml Balance 700 ml Assessment & Plan Problem List: (1) ALZHEIMER'S DISEASE WITH EARLY ONSET ICD Codes: G30.0 - ALZHEIMER'S DISEASE WITH EARLY ONSET (2) DEMENTIA IN OTH DISEASES CLASSD ELSWHR W BEHAVIORAL DISTURB ICD Codes: F02.81 - DEMENTIA IN OTH DISEASES CLASSD ELSWHR W BEHAVIORAL DISTURB Assessment & Plan Continue current treatment plan Justification for Cont. Inpt. Patient would decompensate in a less restrictive setting. Request HC Surrog/Guard Advoc?: Yes Ruddy Centeno DO Mar 25, 2017 16:17
[2017-03-25 17:49] VITALS: BP 103/65; PULSE 89; RESP 16; TEMP 98.1; O2SAT 99
[2017-03-25] MEDS: diphenhydrAMINE HCL 50 MG CAP PO PRN (20:28)
[2017-03-25] MEDS: IBUPROFEN 600 MG TAB PO PRN (20:29)
[2017-03-25] MEDS: REMOVE OLD NICODERM (NICOTINE) PATCH T-DERMAL SCH (21:00)
[2017-03-26] MEDS: QUEtiapine FUMARATE 100 MG TAB PO SCH ×3 (08:00→20:21)
[2017-03-26] MEDS: NICOTINE 21 MG/24 HR PATCH T-DERMAL SCH (08:38)
--- NOTE | 2017-03-26 10:40 | HHI.PYPN ---
Subjective Chief Complaint: confused living and squalor Remarks Patient was seen and case discussed with nursing. Per nursing patient was quite irritable this morning and refused his vital signs. Patient has memory loss and cannot remember this incident. He is compliant with his medications. Says he ate breakfast. Behaving well on the unit otherwise Mental Status Examination Appearance: Disheveled Consciousness: Alert Orientation: Person, Place (hospital) Motor Activity: Abnormal gait (use his walker) Speech: Unremarkable Language: Adequate Fund of Knowledge: Adequate Attention and Concentration: Easily Distracted Memory: Impaired Mood: Angry, Irritable Affect: Irritable, Other (angry) Thought Process & Associations: Disorganized Thought Content: Other (disorganized) Hallucination Type: None (denies) Delusion Type: None Suicidal Ideation: No Suicidal Plan: No Suicidal Intention: No Homicidal Ideation: No Homicidal Plan: No Homicidal Intention: No Insight: Poor Judgment: Poor Results Vitals/IOs Vital Signs Date Time Temp Pulse Resp B/P (MAP) Pulse Ox O2 Delivery O2 Flow Rate FiO2 03/25/17 17:49 98.1 89 16 103/65 (78) 99 Intake and Output 03/26/17 03/26/17 03/27/17 08:00 16:00 00:00 Intake Total 0 ml 360 ml Balance 0 ml 360 ml Assessment & Plan Problem List: (1) ALZHEIMER'S DISEASE WITH EARLY ONSET ICD Codes: G30.0 - ALZHEIMER'S DISEASE WITH EARLY ONSET (2) DEMENTIA IN OTH DISEASES CLASSD ELSWHR W BEHAVIORAL DISTURB ICD Codes: F02.81 - DEMENTIA IN OTH DISEASES CLASSD ELSWHR W BEHAVIORAL DISTURB Assessment & Plan Continue current treatment plan Justification for Cont. Inpt. Patient will decompensate in a less restrictive setting Request HC Surrog/Guard Advoc?: Yes Ruddy Centeno DO Mar 26, 2017 10:40
[2017-03-26 11:01] VITALS: BP 112/69; PULSE 100; RESP 18; TEMP 97.9; O2SAT 98
[2017-03-26] MEDS: IBUPROFEN 600 MG TAB PO PRN ×2 (13:41→20:21)
[2017-03-26 18:23] VITALS: BP 100/61; PULSE 87; RESP 18; TEMP 98.1; O2SAT 98
[2017-03-26] MEDS: REMOVE OLD NICODERM (NICOTINE) PATCH T-DERMAL SCH (21:00)
[2017-03-27 06:47] VITALS: BP 106/64; PULSE 74; RESP 16; TEMP 98.4; O2SAT 98
[2017-03-27] MEDS: QUEtiapine FUMARATE 100 MG TAB PO SCH ×3 (08:46→21:00)
[2017-03-27] MEDS: NICOTINE 21 MG/24 HR PATCH T-DERMAL SCH (08:47)
--- NOTE | 2017-03-27 12:56 | HHI.PYPN ---
Subjective Chief Complaint: confused living and squalor Remarks Patient seen in dayroom with medical student Jose, chart review, patient discussed with nurse. Patient alert calm pleasant with me. Continues pleasantly confused. Did not recognize me from yesterday. Review of Systems Except as stated in HPI: all other systems reviewed are Neg Mental Status Examination Appearance: Disheveled Consciousness: Alert Orientation: Person, Place (hospital) Motor Activity: Abnormal gait (use his walker) Speech: Unremarkable Language: Adequate Fund of Knowledge: Adequate Attention and Concentration: Easily Distracted Memory: Impaired Mood: Angry, Irritable Affect: Irritable, Other (angry) Thought Process & Associations: Disorganized Thought Content: Other (disorganized) Hallucination Type: None (denies) Delusion Type: None Suicidal Ideation: No Suicidal Plan: No Suicidal Intention: No Homicidal Ideation: No Homicidal Plan: No Homicidal Intention: No Insight: Poor Judgment: Poor Results Vitals/IOs Vital Signs Date Time Temp Pulse Resp B/P (MAP) Pulse Ox O2 Delivery O2 Flow Rate FiO2 03/27/17 06:47 98.4 74 16 106/64 (78) 98 Intake and Output 03/27/17 03/27/17 03/28/17 08:00 16:00 00:00 Intake Total 360 ml 360 ml Balance 360 ml 360 ml Assessment & Plan Problem List: (1) ALZHEIMER'S DISEASE WITH EARLY ONSET ICD Codes: G30.0 - ALZHEIMER'S DISEASE WITH EARLY ONSET (2) DEMENTIA IN OTH DISEASES CLASSD ELSWHR W BEHAVIORAL DISTURB ICD Codes: F02.81 - DEMENTIA IN OTH DISEASES CLASSD ELSWHR W BEHAVIORAL DISTURB Assessment & Plan Estimated LOS: days patient continues confused and demented, though behaviors have improved he is calm and cooperative at this time Justification for Cont. Inpt. At this time patient will decompensate placed in a lower level of care Discharge Planning Placement remains problematic Request HC Surrog/Guard Advoc?: Yes Travis Brannon MD Mar 27, 2017 12:56
[2017-03-27 18:14] VITALS: BP 108/65; PULSE 88; RESP 16; TEMP 98.5; O2SAT 100
[2017-03-27] MEDS: REMOVE OLD NICODERM (NICOTINE) PATCH T-DERMAL SCH (21:00)
[2017-03-28] MEDS: QUEtiapine FUMARATE 100 MG TAB PO SCH ×3 (09:12→21:12)
[2017-03-28] MEDS: NICOTINE 21 MG/24 HR PATCH T-DERMAL SCH (09:12)
--- NOTE | 2017-03-28 13:08 | HHI.PYPN ---
Subjective Chief Complaint: confused living and squalor Remarks Patient seen in his room with nurse Agatha and medical student Jose, chart reviewed, patient discussed with nurse. Patient remains calm cooperative and pleasant, remains pleasantly confused and compliant with medications. For now continue treatment. Placement continues problematic Review of Systems Except as stated in HPI: all other systems reviewed are Neg Mental Status Examination Appearance: Disheveled Consciousness: Alert Orientation: Person, Place (hospital) Motor Activity: Abnormal gait (use his walker) Speech: Unremarkable Language: Adequate Fund of Knowledge: Adequate Attention and Concentration: Easily Distracted Memory: Impaired Mood: Angry, Irritable Affect: Irritable, Other (angry) Thought Process & Associations: Disorganized Thought Content: Other (disorganized) Hallucination Type: None (denies) Delusion Type: None Suicidal Ideation: No Suicidal Plan: No Suicidal Intention: No Homicidal Ideation: No Homicidal Plan: No Homicidal Intention: No Insight: Poor Judgment: Poor Results Vitals/IOs Vital Signs Date Time Temp Pulse Resp B/P (MAP) Pulse Ox O2 Delivery O2 Flow Rate FiO2 03/27/17 18:14 98.5 88 16 108/65 (79) 100 Intake and Output 03/28/17 03/28/17 03/29/17 08:00 16:00 00:00 Intake Total 0 ml 240 ml Balance 0 ml 240 ml Assessment & Plan Problem List: (1) ALZHEIMER'S DISEASE WITH EARLY ONSET ICD Codes: G30.0 - ALZHEIMER'S DISEASE WITH EARLY ONSET (2) DEMENTIA IN OTH DISEASES CLASSD ELSWHR W BEHAVIORAL DISTURB ICD Codes: F02.81 - DEMENTIA IN OTH DISEASES CLASSD ELSWHR W BEHAVIORAL DISTURB Assessment & Plan Estimated LOS: days patient remains confused and demented, though behaviorproblemsatthistime.Fornowcontinuetreatment Justification for Cont. Inpt. At this time patient will decompensate if placed in a lower level of care Discharge Planning Placement remains problematic Request HC Surrog/Guard Advoc?: Yes Travis Brannon MD Mar 28, 2017 13:08
--- NOTE | 2017-03-28 13:53 | PD.TTN ---
Patient Problems 1. Discharge planning 2. Medication compliance 3. Knowledge deficit 4. Lack of coping skills Progress Toward Goals Provider Present: Dr. Scott Brannon Provider Input: 03/26/17 patient continues to need placement 03/21/17 patient still in need for placement 03/15/17 still titrating medications since aggitation increased, severly confused and working towards medications adjustments to get him ready for placement 03/10/17 still very confused and in need for placement for safe discharge 03/01 patient is very confused 03/06 very confused and in need of placement, incompetent to make good decisions Psychiatric Counselors Present: Antoinette Barbour LCSW Psych Therapist Input: 03/26/17 working on more referrals for placement awaiting answers 03/21/17 working with DCF on placement due to patient's behavior cannot go to [facility], he is referred to [facility] 03/15/17 [facility] accepted patient once medications are increased and he had days without any ETO, he remains very disoriented and in need for assisted care 03/10/17 patient becomes easily aggitated and demanding wanting to be in his home in [place] or asking for his TV thinking we stole and he wants it in his room, he needs a placemetn which will be arranged with [facility] soon, he is Medicare pending and halfway will need a letter from Social Security to accept him/[facility] will take him once Medicare is pending/ in writing with a date of when he will be eligible Awaiting for DCF to assist with it 03/01 patient is in need of a placement but will need help from [facility] and more insurance coverage/assistance, his house is reporeted condemned 03/06 awaiting hear back from [facility] today, he is pending insurance and counselors are working on placement Group Spec/RT/OT/TOURE Present: TEJAL Singh, Narinder Bueno, SHANTELLE Group Spec/RT/OT/TOURE Input: he xdoes not attend any groups 03/21/17 patient does not participate 03/15/17 hositle and refuses groups poor social skills and argumentative in the milieu , engages in groups when encouraged 03/01 does not attend any groups at this time 03/06 does not attend groups Antoinette Barbour LCSW Mar 28, 2017 13:53
[2017-03-28] MEDS: IBUPROFEN 600 MG TAB PO PRN (14:19)
[2017-03-28 18:00] VITALS: BP 126/78; PULSE 74; RESP 16; TEMP 98.2; O2SAT 97
[2017-03-28] MEDS: REMOVE OLD NICODERM (NICOTINE) PATCH T-DERMAL SCH (21:00)
[2017-03-28] MEDS: diphenhydrAMINE HCL 50 MG CAP PO PRN (21:12)
[2017-03-29] MEDS: NICOTINE 21 MG/24 HR PATCH T-DERMAL SCH (08:32)
[2017-03-29] MEDS: QUEtiapine FUMARATE 100 MG TAB PO SCH ×3 (08:32→20:11)
--- NOTE | 2017-03-29 15:12 | HHI.PYPN ---
Subjective Chief Complaint: confused living and squalor Remarks Patient seen in day room with nurse maycol Nguyen, chart review, patient discussed with nurse patient continues diffusely confused, patient no behavioral problems at this time for now continue treatment Review of Systems Except as stated in HPI: all other systems reviewed are Neg Mental Status Examination Appearance: Disheveled Consciousness: Alert Orientation: Person, Place (hospital) Motor Activity: Abnormal gait (use his walker) Speech: Unremarkable Language: Adequate Fund of Knowledge: Adequate Attention and Concentration: Easily Distracted Memory: Impaired Mood: Angry, Irritable Affect: Irritable, Other (angry) Thought Process & Associations: Disorganized Thought Content: Other (disorganized) Hallucination Type: None (denies) Delusion Type: None Suicidal Ideation: No Suicidal Plan: No Suicidal Intention: No Homicidal Ideation: No Homicidal Plan: No Homicidal Intention: No Insight: Poor Judgment: Poor Results Vitals/IOs Vital Signs Date Time Temp Pulse Resp B/P (MAP) Pulse Ox O2 Delivery O2 Flow Rate FiO2 03/28/17 18:00 98.2 74 16 126/78 (94) 97 Intake and Output 03/29/17 03/29/17 03/30/17 08:00 16:00 00:00 Intake Total 0 ml Output Total 420 ml Balance -420 ml Assessment & Plan Problem List: (1) ALZHEIMER'S DISEASE WITH EARLY ONSET ICD Codes: G30.0 - ALZHEIMER'S DISEASE WITH EARLY ONSET (2) DEMENTIA IN OTH DISEASES CLASSD ELSWHR W BEHAVIORAL DISTURB ICD Codes: F02.81 - DEMENTIA IN OTH DISEASES CLASSD ELSWHR W BEHAVIORAL DISTURB Assessment & Plan Estimated LOS: days patient continues confused disoriented though no behavior problems. Placement remains problematic Justification for Cont. Inpt. At this time patient will decompensate a placed a lower level of care Discharge Planning Continue to work on placement issues Request HC Surrog/Guard Advoc?: Yes Travis Brannon MD Mar 29, 2017 15:12
[2017-03-29] MEDS: diphenhydrAMINE HCL 50 MG CAP PO PRN (20:12)
[2017-03-29] MEDS: IBUPROFEN 600 MG TAB PO PRN (20:12)
[2017-03-29] MEDS: REMOVE OLD NICODERM (NICOTINE) PATCH T-DERMAL SCH (20:16)
[2017-03-30 05:25] VITALS: BP 96/58; PULSE 92; RESP 17; TEMP 98.2; O2SAT 95
[2017-03-30] MEDS: QUEtiapine FUMARATE 100 MG TAB PO SCH ×3 (09:03→20:25)
[2017-03-30] MEDS: NICOTINE 21 MG/24 HR PATCH T-DERMAL SCH (09:05)
--- NOTE | 2017-03-30 09:19 | HHI.PYPN ---
Subjective Chief Complaint: confused living and squalor Remarks Patient seen in day room with nurse Manolo, chart review, patient discussed with nurse. Patient is pleasantly confused, though no behavioral problems he is cooperative pleasant with me. For now continue treatment Review of Systems Except as stated in HPI: all other systems reviewed are Neg Mental Status Examination Appearance: Disheveled Consciousness: Alert Orientation: Person, Place (hospital) Motor Activity: Abnormal gait (use his walker) Speech: Unremarkable Language: Adequate Fund of Knowledge: Adequate Attention and Concentration: Easily Distracted Memory: Impaired Mood: Angry, Irritable Affect: Irritable, Other (angry) Thought Process & Associations: Disorganized Thought Content: Other (disorganized) Hallucination Type: None (denies) Delusion Type: None Suicidal Ideation: No Suicidal Plan: No Suicidal Intention: No Homicidal Ideation: No Homicidal Plan: No Homicidal Intention: No Insight: Poor Judgment: Poor Results Vitals/IOs Vital Signs Date Time Temp Pulse Resp B/P (MAP) Pulse Ox O2 Delivery O2 Flow Rate FiO2 03/30/17 05:25 98.2 92 17 96/58 (71) 95 Intake and Output 03/30/17 03/30/17 03/31/17 08:00 16:00 00:00 Intake Total 0 ml Balance 0 ml Assessment & Plan Problem List: (1) ALZHEIMER'S DISEASE WITH EARLY ONSET ICD Codes: G30.0 - ALZHEIMER'S DISEASE WITH EARLY ONSET (2) DEMENTIA IN OTH DISEASES CLASSD ELSWHR W BEHAVIORAL DISTURB ICD Codes: F02.81 - DEMENTIA IN OTH DISEASES CLASSD ELSWHR W BEHAVIORAL DISTURB Assessment & Plan Estimated LOS: days patient remains confused and demented, though no behavior problems, compliant medication. For now continue treatment Justification for Cont. Inpt. At this time patient decompensate if not place an appropriate level of care Discharge Planning Continue to work on placement issues Request HC Surrog/Guard Advoc?: Yes Travis Brannon MD Mar 30, 2017 09:19
[2017-03-30 17:23] VITALS: BP 103/65; PULSE 87; RESP 17; TEMP 98.7; O2SAT 99
[2017-03-30] MEDS: diphenhydrAMINE HCL 50 MG CAP PO PRN ×2 (20:22→20:25)
[2017-03-30] MEDS: IBUPROFEN 600 MG TAB PO PRN ×2 (20:23→20:25)
[2017-03-30] MEDS: REMOVE OLD NICODERM (NICOTINE) PATCH T-DERMAL SCH (21:00)
[2017-03-31 06:19] VITALS: BP 76/48; PULSE 97; RESP 18; TEMP 98.1; O2SAT 97
[2017-03-31] MEDS: QUEtiapine FUMARATE 100 MG TAB PO SCH (08:28)
[2017-03-31] MEDS: NICOTINE 21 MG/24 HR PATCH T-DERMAL SCH (08:30)
--- NOTE | 2017-03-31 09:21 | HHI.PYPN ---
Subjective Chief Complaint: confused living and squalor Remarks Patient seen in day room with counselor pancho randle, chart reviewed, patient discussed with nurse. Patient was originally scheduled to be discharged today [facility]. However well patient gave approval for a transferred to a long-term facility over the past few days when told today that he would be leaving he became quite angry. He essentially said "hell no" I won't go. Said just threw me out to the curb it I'll be okay. There is marked anger frustration paranoia and is is attitude. This is somewhat reminiscent of a prior attempt at placement where he made it to a facility but became so out of control behaviors immediately brought back to us. At this time I feel patient is to out of control to angry into defiant for safe discharge. Thus I'll cancel the discharge we need to continue following this patient and adjust medications accordingly Review of Systems Except as stated in HPI: all other systems reviewed are Neg Mental Status Examination Appearance: Disheveled Consciousness: Alert Orientation: Person, Place (hospital) Motor Activity: Abnormal gait (use his walker) Speech: Unremarkable Language: Adequate Fund of Knowledge: Adequate Attention and Concentration: Easily Distracted Memory: Impaired Mood: Angry, Irritable Affect: Irritable, Other (angry) Thought Process & Associations: Disorganized Thought Content: Other (disorganized) Hallucination Type: None (denies) Delusion Type: None Suicidal Ideation: No Suicidal Plan: No Suicidal Intention: No Homicidal Ideation: No Homicidal Plan: No Homicidal Intention: No Insight: Poor Judgment: Poor Results Vitals/IOs Vital Signs Date Time Temp Pulse Resp B/P (MAP) Pulse Ox O2 Delivery O2 Flow Rate FiO2 03/31/17 06:19 98.1 97 18 76/48 (57) 97 Intake and Output 03/31/17 03/31/17 04/01/17 08:00 16:00 00:00 Intake Total 0 ml Balance 0 ml Assessment & Plan Problem List: (1) ALZHEIMER'S DISEASE WITH EARLY ONSET ICD Codes: G30.0 - ALZHEIMER'S DISEASE WITH EARLY ONSET (2) DEMENTIA IN OTH DISEASES CLASSD ELSWHR W BEHAVIORAL DISTURB ICD Codes: F02.81 - DEMENTIA IN OTH DISEASES CLASSD ELSWHR W BEHAVIORAL DISTURB Assessment & Plan Estimated LOS: days the attempt at discharged today failed to patient's increased anger irritability refusal to leave. Showing increased paranoia and absolutely no insight into his issues. We'll continue hospitalization consider further medication adjustments Justification for Cont. Inpt. At this time patient showing increased agitation paranoia irritability and lack of insight. Discharge Planning To be determined Request HC Surrog/Guard Advoc?: Yes Travis Brannon MD Mar 31, 2017 09:21
[2017-03-31] MEDS: IBUPROFEN 600 MG TAB PO PRN (12:40)
[2017-03-31] MEDS ORDERED: QUEtiapine FUMARATE 100 MG TAB PO SCH (13:00)
[2017-03-31] MEDS ORDERED: LORA-392 PO (13:53)
[2017-03-31] MEDS ORDERED: QUET1TAB8 PO ×2 (13:53)
--- NOTE | 2017-03-31 14:04 | HHI.DS ---
Psychiatry Discharge Summary Inpatient Psychiatric care?: Yes Advance Directive: Yes Mental Health AdvanceDirective: No Health Care Proxy: No Admission Admission Date Feb 26, 2017 at 11:11 Admission Diagnosis: (1) ALZHEIMER'S DISEASE WITH EARLY ONSET ICD Code: G30.0 - ALZHEIMER'S DISEASE WITH EARLY ONSET (2) DEMENTIA IN OTH DISEASES CLASSD ELSWHR W BEHAVIORAL DISTURB ICD Code: F02.81 - DEMENTIA IN OTH DISEASES CLASSD ELSWHR W BEHAVIORAL DISTURB Brief History Condition is a 56-year-old white male comes here under Ramirez act by the [facility]'s office dated 02/24/17 at 1612 hrs. that Jose reviewed and agreed with it essentially is stating that he Jose observed several environmental hazards in Escobar's residents. Including black mold growing on the floors and chapa, a large puddle of standing water on the floor of the kitchen and living room, dog feces on the floor, garbage on the floors and contours in approximately 15 bottles of urine on the floor in the living room Kelly Garcia attempted to speak with Escobar in depth in reference to his living situation but found did immediately became apparent Escobar did not fully comprehend the reality of his situations. Escobar stated he thought the year was 2005. Escobar stated he was not having thoughts about harming himself or others but he was not sure if was able care for himself any longer. Based on several of Escobar's confused statements became apparent Escobar was unable to determine if mental health evaluation was necessary appropriate also was unable to advise if he has any willing family members to assist him. Patient seen screened in the ED urine toxicology negative blood alcohol level: Negative. Patient seen in his room with nurse Carvajal patient initially irritable questioning why he is admitted to the psychiatric unit. He is diffusely disoriented though is able to denies she is in a hospital he is in [place] he thought the year was 1995 he could not identify the month the date or the day. He states he came down here from [place] about a month ago to do "paperwork" did visit with his mother and father. [facility] stated that he had a stroke a few months ago the left week that his family service caseworker broke giving various excuses for of the large amounts of urine started problems in his home. However the counselor has talked to social work therapist is involved with the family. It appears patient's mother a number of years ago. That he has been down here for significant period of time his misuse alcohol greater than what he expressed to me. There is [facility] of [facility]. She denies any prior psychiatric contact hospitalization psychotropic medications except when he was discharged with a DUI a number of years ago he denies any physical sexual abuse. Denies any mental illness in the family. He states he is single has no children. At this time I feel patient does meet criteria for involuntary psychiatric hospitalization the Ramirez act I will do first opinion request opinion. I also feel that he doesn't have capacity to make appropriate decisions concerning his care thus I'll ask for healthcare surrogate and guardian advocate. He is on no specific medications at this time. We will the hospitalist consult with us, will have neurology consult with us. We will have PT consult with us. The patient is a 56 years old man, who was admitted via ER because he came under Ramirez act initiated by [facility]'s office due to self- neglect behavior and living in the proper conditions. Patient has psychiatric history of dementia. Patient was consulted to me for second opinion. He reports feeling okay. Patient says that he doesn't even know the reason he is in the hospital. He seems to be quite disoriented and confused, but no agitation, no aggressive behavior, no prominent paranoia observed. He denies suicidal or homicidal ideation, he denies visual and auditory hallucinations. Tobacco Use In Past 30 Days: 5 or More Cigarettes/Day Alcohol Use: 2-3 Times Per Week Hospital Course Patient's hospital course initially showed and irritability paranoia poor insight with this patient. Along with his cognitive deficits. He showed an unwillingness to acknowledges the squalor he was living in her his cognitive issues. However the patient has shown compliance with his medications. As a medications were adjusted and titrated patient's paranoia vigilance subsided. There was denial of his disabilities. However his affect in intensity markedly softened. Towards the latter end of the hospitalization he showed more willingness and agreement to go to a placement. We were able to discuss with them the squalor use living and and that the house was being assessed by DCF and being considered for repair. But he needed to except a temporary placement in a health and rehabilitation. It appears [facility] his accepted this patient. It appears the may be a bed available today. Staff member is coming to visit patient later this afternoon. Patient to be accepted to that facility if bed available tonight and patient continues a willingness to go there. Thus patient will be discharged tonight with the proviso of a bed being available on accepted. Rx 1 month. And follow -up resources at that facility Results Blood Pressure 76 / 48 Vital Signs Date Time Temp Pulse Resp B/P (MAP) Pulse Ox O2 Delivery O2 Flow Rate FiO2 03/31/17 06:19 98.1 97 18 76/48 (57) 97 Laboratory Results Test 02/27/17 13:38 Cholesterol Level 138 MG/DL (120-200) HDL Cholesterol 69.0 MG/DL (40.0-60.0) Hemoglobin A1c 5.4 % (4.3-6.0) LDL Cholesterol 49 MG/DL (0-99) Triglycerides Level 101 MG/DL (42-150) Summary of Procedures None done Imaging Last Impressions Liver Ultrasound 02/28/17 0000 Signed Impressions: Service Date/Time: Tuesday, February 28, 2017 19:19 - CONCLUSION: 1. Fatty liver mildly enlarged 2. Gallbladder wall thickening with probable gallbladder polyp. No stones or biliary ductal dilatation. No free fluid. Ej Oden MD Brain MRI 02/28/17 0000 Signed Impressions: Service Date/Time: Tuesday, February 28, 2017 17:35 - CONCLUSION: 1. Mildly prominent ventricles but stable since September 2015. No recent infarct. No mass or shift. No acute findings. Ej Oden MD Head CT 02/26/17 1047 Signed Impressions: Service Date/Time: Sunday, February 26, 2017 10:57 - CONCLUSION: Slight atrophic changes without any acute process. Yahaira Coello MD Pending results at discharge: No Medications # of Antipsychotic meds at D/C: 1 Approp Antipsych med options 1 - Minimum of three failed multiple trials of monotherapy. 2 - Documented plan to taper to monotherapy due to previous use of multiple meds OR cross-taper in progress at D/C. 3 - Documentation of augmentation of Clozapine. 4 - Justification other than those listed in allowable values 1-3, document here : Discharge Discharge Date: Mar 31, 2017 Discharge Diagnosis: (1) ALZHEIMER'S DISEASE WITH EARLY ONSET Diagnosis: Principal ICD Code: G30.0 - ALZHEIMER'S DISEASE WITH EARLY ONSET (2) DEMENTIA IN OTH DISEASES CLASSD ELSWHR W BEHAVIORAL DISTURB Diagnosis: Principal ICD Code: F02.81 - DEMENTIA IN OTH DISEASES CLASSD ELSWHR W BEHAVIORAL DISTURB Pt Condition on Discharge: Stable Discharge Disposition: Discharge to SNF Discharge Instructions Diet Instructions: As Tolerated, No Restrictions Activities you can perform: Regular-No Restrictions Scheduled Appointment: follow-up clinician through [facility] Discharge Time > 30 minutes Mental Status Examination Appearance: Disheveled Consciousness: Alert Orientation: Person, Place (hospital) Motor Activity: Abnormal gait (use his walker) Speech: Unremarkable Language: Adequate Fund of Knowledge: Adequate Attention and Concentration: Easily Distracted Memory: Impaired Mood: Angry, Irritable Affect: Irritable, Other (angry) Thought Process & Associations: Disorganized Thought Content: Other (disorganized) Hallucination Type: None (denies) Delusion Type: None Suicidal Ideation: No Suicidal Plan: No Suicidal Intention: No Homicidal Ideation: No Homicidal Plan: No Homicidal Intention: No Insight: Poor Judgment: Poor Discharge/Advance Care Plan Health Problems: (1) ALZHEIMER'S DISEASE WITH EARLY ONSET (2) DEMENTIA IN OTH DISEASES CLASSD ELSWHR W BEHAVIORAL DISTURB Goals to promote your health * To prevent worsening of your condition and complications * To maintain your health at the optimal level Directions to meet your goals Take your medications as prescribed Follow your dietary instruction Follow activity as directed Keep your appointments as scheduled Take your immunizations and boosters as scheduled If your symptoms worsen call your PCP, if no PCP go to Urgent Care Center or Emergency Room For 29/08 questions related to your inpatient stay or results of tests pending at discharge, please contact Dr. Travis Brannon at Smoking is Dangerous to Your Health. Avoid second hand smoking Travis Brannon MD Mar 31, 2017 14:03
== END 2017-03-31 16:35 | DRG 57 ==
LOC: NEPD 11:25 → NEDA 02-26 11:11 → H250 02-26 13:00
PROVIDERS: ADMIT Psychiatry & Neurology Psychiatry; ATTEND Psychiatry & Neurology Psychiatry
DX: G30.0 Alzheimer's disease with early onset (principal); F02.81 Dementia in other diseases classified elsewhere, unspecified severity, with behavioral disturbance; K76.0 Fatty (change of) liver, not elsewhere classified; L97.319 Non-pressure chronic ulcer of right ankle with unspecified severity; R29.6 Repeated falls; R26.2 Difficulty in walking, not elsewhere classified; Z86.73 Personal history of transient ischemic attack (TIA), and cerebral infarction without residual deficits; F12.90 Cannabis use, unspecified, uncomplicated; F17.210 Nicotine dependence, cigarettes, uncomplicated; Z72.89 Other problems related to lifestyle; R74.8 Abnormal levels of other serum enzymes; R74.0 Nonspecific elevation of levels of transaminase and lactic acid dehydrogenase [LDH]; Z96.641 Presence of right artificial hip joint; S51.812A Laceration without foreign body of left forearm, initial encounter; S51.811A Laceration without foreign body of right forearm, initial encounter; X58.XXXA Exposure to other specified factors, initial encounter; Y92.238 Other place in hospital as the place of occurrence of the external cause
CPT/HCPCS: 70450; 70551; 76705; 80048; 80053; 80061; 80074; 80076; 80307; 81001; 82607; 83036; 85025; 96372; J1200; J1630; J2060; J3486; Q0163